=== PATIENT | female | born 1985 | race Caucasian/White ===

== ENCOUNTER 2017-07-07 09:34 | Observation (INO) | payer MEDICAID ==
[~2017-07-07] VITALS: Ht 154.9 cm; Wt 52.0 kg
[~2017-07-07 09:34] MED LIST: AMOX500C2 PO; DOCU100C37 PO; GABA-488 PO; IBUP-1773 PO; OXYC-471 PO; SULF1TAB35 PO; TRAM50TA2 PO
--- OUTSIDE RECORDS SUMMARY | 2017-07-07 09:39 | XMS REPORT ---
Author Author DEVAN SORENSEN Organization [facility] Address [address] [place] [address] Care Team Providers Care Solo Truck Driver Name Role Phone DEVAN SORENSEN Unavailable PROBLEMS Type Condition ICD9-CM Code [id number] Code Onset Dates Condition Status SNOMED Code Problem Seasonal allergic rhinitis, unspecified allergic rhinitis trigger J30.2 Active 550976593 Problem Nondependent tobacco use disorder 305.1 Active 303744839 Problem Cough 786.2 Active [id number] ALLERGIES Substance Reaction Event Type Date Status N.K.D.A. Unknown Non Drug Allergy Oct, Unknown SOCIAL HISTORY No smoking Hx information available PLAN OF CARE Activity Details Follow Up prn Reason: VITAL SIGNS Height 62 in 2016-11-06 Weight 119.4 lbs 2016-11-06 Temperature 97.6 degrees Fahrenheit 2016-11-06 Heart Rate 84 bpm 2016-11-06 Respiratory Rate 20 2016-11-06 BMI 21.84 kg/m2 2016-11-06 Blood pressure systolic 128 mmHg 2016-11-06 Blood pressure diastolic 76 mmHg 2016-11-06 MEDICATIONS Medication Instructions Dosage Frequency Start Date End Date Duration Status Ibuprofen 800 MG Orally Three times a day 1 tablet 8h Oct, Nov, 15 days Active RESULTS Name Result Date Reference Range Xray : Finger(s), Right 2 views (IN HOUSE) 2016-11-06 PROCEDURES Procedure Date Ordered Related Diagnosis Body Site X-RAY EXAM OF FINGER(S) Nov 06, 2016 Office Visit, Est Pt., Level 3 Nov 06, 2016 IMMUNIZATIONS No Known Immunizations
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
[2017-07-07] MEDS ORDERED: ONDA4TAB11 SL (10:07)
--- NOTE | 2017-07-07 10:29 | ED General ---
General Chief Complaint: General Problems/Pain Stated Complaint: BLOOD IN URINE/NAUSEA/STOMACH PAIN Nursing Triage Note: ARRIVED VIA AMB TO ROOM 06 WITH MULTIPLE COMPLAINTS. CURRENTLY DETOXING ON OWN OFF OF [employer] ET HAS AN APPT WITH ASHLIE TOMORROW. STATES SHE IS PEEING ORANGE, STOMACH HURTS, GENERAL CRAMPING IN ALL EXT, AND GENERALIZED EDEMA. Nursing Sepsis Screen: Possible Sepsis Risk Source of Information: Patient, Family Exam Limitations: No Limitations History of Present Illness Time Seen by Provider: 10:25 Initial Comments This 31-year-old white female presents with a history of recently discontinuing significant drinking what she has done for the past year. The patient has had subsequent general malaise with nausea and vomiting. The patient feels clinically dehydrated. Patient has no localized abdominal pain. She denies hematemesis or black or tarry stools. Patient has noted apparent hematuria although she has no associated dysuria or frequency. Allergies and Home Medications Allergies Coded Allergies: No Known Drug Allergies (Unverified , 11/06/14) Home Medications Ondansetron 4 Mg Tab.rapdis, (Reported) Constitutional: chills, No fever, malaise, weakness EENTM: No ear pain, No throat pain Respiratory: No cough Cardiovascular: No chest pain Gastrointestinal: No abdominal pain, No diarrhea, nausea, vomiting Genitourinary: No dysuria, No frequency, hematuria : No Musculoskeletal: No back pain Skin: No rash Psychiatric/Neurological: No Symptoms Reported Hematologic/Lymphatic: No Symptoms Reported Past Fvtlwqn-Scgbyg-Ihvwcb Hx Patient Social History Alcohol Use: Regular Use Alcohol Beverage of Choice: Whiskey Recreational Drug Use: Yes (POT) Smoking Status: Current Everyday Smoker Type Used: Cigarettes Recent Foreign Travel: No Contact w/Someone Who Travel: No Recent Infectious Disease Expo: No Recent Hopitalizations: No Immunizations Up To Date Tetanus Booster (TDap): Less than 5yrs Surgeries History of Surgeries: Yes (Rt.hand surgery) Surgeries: Section, Orthopedic Respiratory History of Respiratory Disorde: No Cardiovascular History of Cardiac Disorders: Yes Cardiac Disorders: Hypertension Neurological History of Neurological Disord: No Reproductive System Last Menstrual Period: Jun 23, 2017 Hx Reproductive Disorders: No Sexually Transmitted Disease: No HIV/AIDS: No Female Reproductive Disorders: Denies Genitourinary History of Genitourinary Disor: No Gastrointestinal History of Gastrointestinal Di: No Musculoskeletal History of Musculoskeletal Dis: Yes Musculoskeletal Disorders: Scoliosis Endocrine History of Endocrine Disorders: No Cancer History of Cancer: No Psychosocial History of Psychiatric Problem: No Integumentary History of Skin or Integumenta: No Blood Transfusions History of Blood Disorders: No Adverse Reaction to a Blood Tr: No Reviewed Nursing Assessment Reviewed/Agree w Nursing PMH: Yes Family Medical History Family Medial History: Diabetes mellitus (mother's side of family) FH: cancer (grandfather- heart CA) Physical Exam Vital Signs Vital Sign - Last 12Hours 07/07/17 09:50 Temp 96.3 Pulse 120 Resp 18 B/P (MAP) 130/97 Pulse Ox 97 O2 Delivery Room Air Capillary Refill : Less Than 3 Seconds General Appearance: Cachetic, Mild Distress Eyes: Bilateral Eye Scleral Icterus HEENT: Normal ENT Inspection Neck: Normal Inspection, Supple Respiratory: Lungs Clear Cardiovascular: Regular Rate, Rhythm Gastrointestinal: Normal Bowel Sounds, No Organomegaly, No Pulsatile Mass, Non Tender Back: Normal Inspection Extremity: Normal Inspection, Normal Range of Motion Neurologic/Psychiatric: Alert, Oriented x3, No Motor/Sensory Deficits Skin: Normal Color, Warm/Dry Progress/Results/Core Measures Results/Orders Lab Results Laboratory Tests Test 07/07/17 10:10 07/07/17 11:00 Range/Units White Blood Count 9.9 4.3-11.0 10^3/uL Red Blood Count 4.23 L 4.35-5.85 10^6/uL Hemoglobin 13.8 11.5-16.0 G/DL Hematocrit 39 35-52 % Mean Corpuscular Volume 93 80-99 FL Mean Corpuscular Hemoglobin 33 25-34 PG Mean Corpuscular Hemoglobin Concent 35 32-36 G/DL Red Cell Distribution Width 18.1 H 10.0-14.5 % Platelet Count 200 130-400 10^3/uL Mean Platelet Volume 10.7 H 7.4-10.4 FL Neutrophils (%) (Auto) 72 42-75 % Lymphocytes (%) (Auto) 17 12-44 % Monocytes (%) (Auto) 10 0-12 % Eosinophils (%) (Auto) 1 0-10 % Basophils (%) (Auto) 0 0-10 % Neutrophils # (Auto) 7.0 1.8-7.8 X 10^3 Lymphocytes # (Auto) 1.7 1.0-4.0 X 10^3 Monocytes # (Auto) 1.0 0.0-1.0 X 10^3 Eosinophils # (Auto) 0.1 0.0-0.3 10^3/uL Basophils # (Auto) 0.0 0.0-0.1 10^3/uL Sodium Level 136 137 135-145 MMOL/L Potassium Level 2.0 *L 2.1 *L 3.6-5.0 MMOL/L Chloride Level 91 L 96 L 98-107 MMOL/L Carbon Dioxide Level 29 28 21-32 MMOL/L Anion Gap 16 H 13 5-14 MMOL/L Blood Urea Nitrogen 8 8 7-18 MG/DL Creatinine 0.67 0.60 0.60-1.30 MG/DL Estimat Glomerular Filtration Rate > 60 > 60 BUN/Creatinine Ratio 12 13 Glucose Level 101 92 70-105 MG/DL Calcium Level 8.2 L 7.4 L 8.5-10.1 MG/DL Total Bilirubin 2.2 H 0.1-1.0 MG/DL Aspartate Amino Transf (AST/SGOT) 53 H 5-34 U/L Alanine Aminotransferase (ALT/SGPT) 24 0-55 U/L Alkaline Phosphatase 127 40-136 U/L Total Protein 6.1 L 6.4-8.2 GM/DL Albumin 3.1 L 3.2-4.5 GM/DL Lipase 5 L 8-78 U/L My Orders Orders - AMRIK GROVER MD Hepatitis Panel Acute (07/07/17 10:22) Cbc With Automated Diff (07/07/17 10:22) Comprehensive Metabolic Panel (07/07/17 10:22) Ua Culture If Indicated (07/07/17 10:22) Chest 1 View, Ap/Pa Only (07/07/17 10:22) Lipase (07/07/17 10:22) Ns Iv 1000 Ml (Sodium Chloride 0.9%) (07/07/17 10:30) Continuous Ekg Monitoring (07/07/17 10:56) Ekg Tracing (07/07/17 10:56) Basic Metabolic Panel (07/07/17 10:56) Potassium Cl 10meq/50ml Ivpb (Kcl 10 Meq (07/07/17 11:00) Potassium Chloride (Tablet) (K Dur Table (07/07/17 11:00) Medications Given in ED Current Medications Medications Dose Ordered Sig/Mariajose Route Start Time Stop Time Status Last Admin Dose Admin Potassium Chloride 20 meq ONCE ONCE PO 07/07/17 11:00 07/07/17 11:01 DC 07/07/17 11:11 20 MEQ Vital Signs/I&O Vital Sign - Last 12Hours 07/07/17 09:50 Temp 96.3 Pulse 120 Resp 18 B/P (MAP) 130/97 Pulse Ox 97 O2 Delivery Room Air Blood Pressure Mean: 108 Progress Note : Time: 12:12 Progress Note Patient laboratory evaluation that was triggered a potassium of 2.0. The lab was repeated and the potassium was 2.1. Patient started on potassium replacement. Patient was feeling better with IV fluids. Dr. Wolff was kind enough to admit the patient to an observation bed. Departure Communication (Admissions) Time/Spoke to Admitting Phy: 12:[address] Chauncey Wolff. Impression Impression: Primary Impression: Acute hypokalemia Disposition: ADMITTED INPATIENT Condition: Improved Admissions Decision to Admit Reason: Admit from ER (General) Decision to Admit/Date: Jul 07, 2017 Time/Decision to Admit Time: 12:14 Departure-Patient Inst. Referrals: [facility] (PCP) Primary Care Physician CHAUNCEY WOLFF MD (Family) Primary Care Physician AMRIK GROVER MD Jul 07, 2017 10:29
[2017-07-07 10:30] LABS: BASOPHILS % (AUTO) 0 % (0-10); EOSINOPHILS # (AUTO) 0.1 10^3/uL (0.0-0.3); EOSINOPHILS % (AUTO) 1 % (0-10); LYMPHOCYTES # (AUTO) 1.7 X 10^3 (1.0-4.0); LYMPHOCYTES % (AUTO) 17 % (12-44); MEAN CORPUSCULAR HEMOGLOBIN 33 PG (25-34); MEAN CORPUSCULAR HGB CONC 35 G/DL (32-36); MEAN CORPUSCULAR VOLUME 93 FL (80-99); MEAN PLATELET VOLUME 10.7 FL (7.4-10.4); MONOCYTES % (AUTO) 10 % (0-12); NEUTROPHILS % (AUTO) 72 % (42-75); PLATELET COUNT 200 10^3/uL (130-400); RED BLOOD COUNT 4.23 10^6/uL (4.35-5.85); RED CELL DISTRIBUTION WIDTH 18.1 % (10.0-14.5); WHITE BLOOD COUNT 9.9 10^3/uL (4.3-11.0)
[2017-07-07] MEDS ORDERED: NS IV 1000 ML 1,000 ML IV SCH (10:30)
[2017-07-07 10:44] LABS: ALANINE AMINOTRANSFERASE 24 U/L (0-55); ALBUMIN 3.1 GM/DL (3.2-4.5); ANION GAP 16 MMOL/L (5-14); ASPARTATE AMINO TRANSFERASE 53 U/L (5-34); BILIRUBIN,TOTAL 2.2 MG/DL (0.1-1.0); BLOOD UREA NITROGEN 8 MG/DL (7-18); BUN/CREATININE RATIO 12; CALCIUM 8.2 MG/DL (8.5-10.1); CARBON DIOXIDE 29 MMOL/L (21-32); CHLORIDE 91 MMOL/L (98-107); CREATININE SERUM 0.67 MG/DL (0.60-1.30); GFR ESTIMATED > 60; GLUCOSE 101 MG/DL (70-105); LIPASE 5 U/L (8-78); SODIUM 136 MMOL/L (135-145); TOTAL PROTEIN 6.1 GM/DL (6.4-8.2)
[2017-07-07] MEDS ORDERED: KCL 20 MEQ TAB (K-DUR) PO ONE (11:00)
[2017-07-07] MEDS: POTASSIUM CL 10MEQ/50ML IVPB 50 ML IV SCH ×3 (11:11→14:27)
[2017-07-07 11:26] LABS: ANION GAP 13 MMOL/L (5-14); BLOOD UREA NITROGEN 8 MG/DL (7-18); BUN/CREATININE RATIO 13; CALCIUM 7.4 MG/DL (8.5-10.1); CARBON DIOXIDE 28 MMOL/L (21-32); CHLORIDE 96 MMOL/L (98-107); GFR ESTIMATED > 60; GLUCOSE 92 MG/DL (70-105); SODIUM 137 MMOL/L (135-145)
[2017-07-07 11:27] LABS: POTASSIUM 2.1 MMOL/L (3.6-5.0)
--- NOTE | 2017-07-07 11:33 | Diagnostic Imaging Report ---
INDICATION: Hypokalemia, generalized edema. TECHNIQUE: Single view chest 10:55 AM. CORRELATION STUDY: None FINDINGS: The heart size, mediastinal configuration and pulmonary vascularity are within normal limits. The lungs are clear with no consolidating infiltrate. There is no significant effusion or pneumothorax. IMPRESSION: 1. Negative portable chest. Dictated by: Dictated on workstation # [id number]
--- OUTSIDE RECORDS SUMMARY | 2017-07-07 12:03 | XMS REPORT | Continuity of Care Document ---
Author Author [facility] of [facility] C[facility] Address Unknown Phone Unavailable Allergies Active Description Code Type Severity Reaction Onset Reported/Identified Relationship to Patient Clinical Status Yes No Known Drug Allergies [id number] Drug Allergy Unknown N/ A 11/06/2014 Medications Problems Date Dx Coded Attending Type Code Diagnosis Diagnosed By 08/02/2014 LAURA SANCHEZ APRN 305.1 TOBACCO ABUSE 08/02/2014 LAURA SANCHEZ APRN 786.2 COUGH 11/06/2014 LEONARDO SONI Ot 521.00 UNSPEC DENTAL CARIES 11/06/2014 LEONARDO SONI Ot 522.5 PERIAPICAL ABSCESS 11/06/2014 LEONARDO SONI Ot 525.9 DENTAL DISORDER NOS 11/24/2014 KARLOS MAY EVP OPERATIONS Ot 727.00 12/23/2014 Ot 873.0 OPEN WOUND OF SCALP 12/23/2014 Ot 959.01 HEAD INJURY, NOS 12/23/2014 Ot E000.8 OTHER EXTERNAL CAUSE STATUS 12/23/2014 Ot E849.[address] NEC 12/23/2014 Ot E917.4 STAT OB W/O SUB FALL NEC 12/23/2014 Ot V06.1 [id number], COMBINED [ 12/24/2014 Ot 873.1 OPEN WOUND SCALP-COMPL 12/24/2014 Ot 873.8 OPEN WOUND OF HEAD NEC 12/24/2014 Ot E000.8 OTHER EXTERNAL CAUSE STATUS 12/24/2014 Ot E958.8 SUICIDE/SELF-INJURY NEC 03/09/2015 KARLOS MAY EVP OPERATIONS Ot 727.00 03/09/2015 KARLOS MAY EVP OPERATIONS Ot 727.00 04/22/2015 KARLOS MAY EVP OPERATIONS Ot 727.00 03/07/2016 KARLOS MAY EVP OPERATIONS Ot 727.00 SYNOVITIS NOS 03/09/2016 ELIZABETH SINCLAIR, [...] Procedures Code [place] [address] OXIMETRY 2013 [id number] EXTRACTION OF POC, LOW CERVICAL, OPEN AP 03/07/2016 Results Encounters ACCT No. Visit Date/Time Discharge Status Pt. Type Provider Facility Loc./Unit Complaint [id number] 08/02/2014 13:44:00 08/02/2014 23: 59:59 CLS Outpatient LAURA SANCHEZ APRN [id number] 06/03/2016 17:15:00 2015 17:30:00 DIS Emergency BRUCE HANNON MD Via [facility] ER STAPLE REMOVAL [id number] 05/24/2016 03:20:00 2015 03:57:00 DIS Emergency CHARLY ASTUDILLO DO Via [facility] ER HEAD LAC-ASSAULT [id number] 03/29/2016 09:38:00 2015 23:59:59 CLS Outpatient POLO JOHNSON MD Via [facility] RAD POSTOPERATIVE ABDOMINAL PAIN [id number] 03/07/2016 10:55:00 2015 12:45:00 DIS Inpatient POLO JOHNSON MD Via [facility] WS C SECTION [id number] 11/11/2014 12:52:00 2014 23:59:59 CLS Outpatient KARLOS MAY APRN Via [facility] RAD PAIN BILAT WRIST/HAND [id number] 11/06/2014 21:07:00 2014 22:30:00 DIS Emergency LEONARDO SONI Via [facility] ER DENTAL PAIN [id number] 03/09/2015 07:18:00 Document Registration [id number] 03/09/2015 07:18:00 Document Registration
[2017-07-07 12:34] LABS: KETONES,URINE 1+ (NEGATIVE); LEUKOCYTE ESTERASE ,URINE 2+ (NEGATIVE); NITRITE,URINE POSITIVE (NEGATIVE); PH,URINE 7 (5-9); PROTEIN,URINE 2+ (NEGATIVE); UROBILINOGEN,URINE 12 MG/DL (NORMAL)
[2017-07-07 12:40] VITALS: BP 122/72
[2017-07-07 12:42] LABS: BILIRUBIN,URINE 2+ (NEGATIVE)
[2017-07-07] MEDS: NS W/KCL 40 MEQ/L 1,000 ML IV SCH ×2 (13:00→22:33)
[2017-07-07 13:40] VITALS: BP 122/72
[2017-07-07] MEDS ORDERED: ONDANSETRON 4 MG/2 ML (SDV) Z0FRAN IV PRN (13:45)
[2017-07-07] MEDS ORDERED: LORazepam INJ 2 MG/ML (ATIVAN) VIAL IV PRN (13:45)
[2017-07-07] MEDS ORDERED: LORazepam 1 MG (ATIVAN) TAB PO PRN (13:45)
[2017-07-07] MEDS ORDERED: CATHETER FLUSH 10 ML SYR IV PRN (13:45)
[2017-07-07] MEDS: KCL 10 MEQ TAB (MICRO K) PO SCH ×2 (13:54→16:13)
[2017-07-07] MEDS: NICOTINE 21 MG (NICODERM) PATCH TD SCH (13:54)
[2017-07-07 15:15] VITALS: BP 122/72
[2017-07-07 15:59] VITALS: BP 120/75
[2017-07-07 18:19] LABS: ANION GAP 15 MMOL/L (5-14); BLOOD UREA NITROGEN 8 MG/DL (7-18); BUN/CREATININE RATIO 14; CALCIUM 7.6 MG/DL (8.5-10.1); CARBON DIOXIDE 25 MMOL/L (21-32); CHLORIDE 96 MMOL/L (98-107); CREATININE SERUM 0.57 MG/DL (0.60-1.30); GFR ESTIMATED > 60; GLUCOSE 96 MG/DL (70-105); SODIUM 136 MMOL/L (135-145)
[2017-07-07 18:26] LABS: POTASSIUM 2.4 MMOL/L (3.6-5.0)
[2017-07-07] MEDS ORDERED: RT-ALBUTEROL/IPRATROPIUM 3 ML (DUONEB) VIAL ONE (19:17)
[2017-07-07] MEDS: KCL 20 MEQ TAB (K-DUR) PO SCH (19:48)
[2017-07-07 19:50] VITALS: BP 124/73
[2017-07-08] VITALS: BP 118/83
[2017-07-08] MEDS: KCL 20 MEQ TAB (K-DUR) PO SCH ×3 (00:09→08:36)
[2017-07-08 04:00] VITALS: BP 115/65
[2017-07-08 05:52] LABS: BASOPHILS % (AUTO) 1 % (0-10); EOSINOPHILS # (AUTO) 0.1 10^3/uL (0.0-0.3); EOSINOPHILS % (AUTO) 1 % (0-10); LYMPHOCYTES # (AUTO) 2.1 X 10^3 (1.0-4.0); LYMPHOCYTES % (AUTO) 34 % (12-44); MEAN CORPUSCULAR HEMOGLOBIN 33 PG (25-34); MEAN CORPUSCULAR HGB CONC 34 G/DL (32-36); MEAN CORPUSCULAR VOLUME 96 FL (80-99); MEAN PLATELET VOLUME 10.8 FL (7.4-10.4); MONOCYTES # (AUTO) 0.6 X 10^3 (0.0-1.0); MONOCYTES % (AUTO) 10 % (0-12); NEUTROPHILS # (AUTO) 3.4 X 10^3 (1.8-7.8); NEUTROPHILS % (AUTO) 54 % (42-75); PLATELET COUNT 188 10^3/uL (130-400); RED BLOOD COUNT 3.51 10^6/uL (4.35-5.85); RED CELL DISTRIBUTION WIDTH 18.7 % (10.0-14.5); WHITE BLOOD COUNT 6.3 10^3/uL (4.3-11.0)
[2017-07-08 06:14] LABS: ALANINE AMINOTRANSFERASE 21 U/L (0-55); ALBUMIN 2.6 GM/DL (3.2-4.5); ANION GAP 9 MMOL/L (5-14); ASPARTATE AMINO TRANSFERASE 50 U/L (5-34); BILIRUBIN,TOTAL 1.4 MG/DL (0.1-1.0); BLOOD UREA NITROGEN 7 MG/DL (7-18); BUN/CREATININE RATIO 13; CALCIUM 7.3 MG/DL (8.5-10.1); CARBON DIOXIDE 25 MMOL/L (21-32); CHLORIDE 103 MMOL/L (98-107); CREATININE SERUM 0.54 MG/DL (0.60-1.30); GFR ESTIMATED > 60; GLUCOSE 112 MG/DL (70-105); POTASSIUM 2.9 MMOL/L (3.6-5.0); SODIUM 137 MMOL/L (135-145); TOTAL PROTEIN 4.9 GM/DL (6.4-8.2)
[2017-07-08] MEDS: RT-ALBUTEROL/IPRATROPIUM 3 ML (DUONEB) VIAL INH SCH ×3 (08:02→14:37)
[2017-07-08 08:32] VITALS: BP 110/73
[2017-07-08] MEDS: NICOTINE 21 MG (NICODERM) PATCH TD SCH (08:36)
[2017-07-08] MEDS ORDERED: NICOTINE PATCH REMOVAL TP SCH (08:59)
[2017-07-08] MEDS: NS W/KCL 40 MEQ/L 1,000 ML IV SCH (09:02)
[2017-07-08 12:00] VITALS: BP 124/79
[2017-07-08 13:16] LABS: KETONES,URINE NEGATIVE (NEGATIVE); LEUKOCYTE ESTERASE ,URINE 2+ (NEGATIVE); NITRITE,URINE POSITIVE (NEGATIVE); PH,URINE 6 (5-9); PROTEIN,URINE 1+ (NEGATIVE); UROBILINOGEN,URINE 8 MG/DL (NORMAL)
[2017-07-08 13:43] LABS: BILIRUBIN,URINE 2+ (NEGATIVE); SQUAMOUS EPITHELIAL CELL,UR 25-50 /HPF
[2017-07-08 13:44] LABS: HYALINE CASTS, URINE 0-2 /LPF
[2017-07-08 15:20] VITALS: BP 137/93
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
[2017-07-08] MEDS ORDERED: CIPR500T4 PO (16:05)
--- NOTE | 2017-07-08 16:06 | Discharge Instructions ---
Discharge Inst-[facility] Discharge Medications New, Converted or Re-Newed RX: Other New Medications: Ciprofloxacin HCl (Ciprofloxacin HCl) 500 Mg Tablet 500 MG PO BID, #14 TAB 0 Refills Continued Medications: Ondansetron (Ondansetron Odt) 4 Mg Tab.rapdis 4 MG SL Q8H PRN for NAUSEA/VOMITING-1ST LINE Patient Instructions Goal/Follow Up Appt: -[facility] WILL CALL YOU TOMORROW TO SCHEDULE A FOLLOW UP APPOINTMENT Patient Instructions: -PLEASE FOLLOW UP WITH YOUR PLANS DISCUSSED WHILE IN HOSPITAL -PLEASE SEE DR DAILEY AND THE ATS TEAM LATER THIS WEEK; BILL WILL CALL TO SCHEDULE -REFRAIN FROM DRINKING ALCOHOL OR TAKING OTHER SUBSTANCES -TAKE THE ANTIBIOTIC FOR YOUR URINARY TRACT INFECTION Return to The Hospital For: THOUGHTS OF WANTING TO HARM YOURSELF; IF YOU DO NOT FEEL SAFE AT HOME Activity & Diet Discharge Diet: No Restrictions Activity as Tolerated: Yes Copy Copies To 1: CHAUNCEY DAILEY MD, JULIE A MD Jul 08, 2017 4:01 pm
== END 2017-07-08 15:59 | disposition home or self-care (01) ==
LOC: EDUNIT# 09:34 → ER 09:36 → 4TH 11:58 → EEVIPCON 11:58 → UNDOADMOB 11:58 → 4TH 11:59
PROVIDERS: ADMIT Pediatrics; ATTEND Pediatrics
DX: E87.6 Hypokalemia (principal); F10.21 Alcohol dependence, in remission; F32.9 Major depressive disorder, single episode, unspecified; I10 Essential (primary) hypertension; F17.210 Nicotine dependence, cigarettes, uncomplicated
CPT/HCPCS: 36415; 71010; 80048; 80053; 80074; 81000; 83690; 84132; 85025; 87088; 93005; 94640; 94664; 94760; G0378

== ENCOUNTER 2018-04-12 13:08 | Emergency (ER) | payer MEDICAID ==
[~2018-04-12] VITALS: Ht 157.5 cm; Wt 51.3 kg
[~2018-04-12 13:08] MED LIST changes: +CIPR500T4 PO; +ONDA4TAB11 SL
--- NOTE | 2018-04-12 13:26 | ED General ---
General Stated Complaint: BLOODY STOOLS FOR A WEEK Source of Information: Patient Exam Limitations: No Limitations History of Present Illness Date Seen by Provider: Apr 12, 2018 Time Seen by Provider: 13:24 Initial Comments to ER with reports of bright red blood streaked stools and abdominal cramping for one week.She denies fevers chills or weight loss. No history of this. No rectal pain. No vomiting or hematemesis. She was a former alcoholic and has been sober for 9 months. Severity: Moderate Associated Systoms: No Loss of Appetite, No Malaise, No Nausea/Vomiting Allergies and Home Medications Allergies Coded Allergies: No Known Drug Allergies (Unverified , 11/06/14) Home Medications Ondansetron 4 Mg Tab.rapdis, 4 MG SL Q8H PRN for NAUSEA/VOMITING-1ST LINE, ( Reported) Patient Home Medication List Home Medication List Reviewed: Yes Review of Systems Constitutional: see HPI EENTM: see HPI Respiratory: no symptoms reported Cardiovascular: no symptoms reported Genitourinary: no symptoms reported Musculoskeletal: no symptoms reported Skin: no symptoms reported Psychiatric/Neurological: No Symptoms Reported Past Qmfpbfd-Zaujbf-Mifjvo Hx Patient Social History Alcohol Beverage of Choice: Whiskey Type Used: Cigarettes Recent Foreign Travel: No Contact w/Someone Who Travel: No Recent Hopitalizations: No Immunizations Up To Date Tetanus Booster (TDap): Less than 5yrs PED Vaccines UTD: Yes Seasonal Allergies Seasonal Allergies: No Past Medical History Surgeries: Yes (Rt.hand surgery) Section, Orthopedic Respiratory: No Cardiac: Yes Hypertension Neurological: No Reproductive Disorders: No Female Reproductive Disorders: Denies Sexually Transmitted Disease: No HIV/AIDS: No Genitourinary: No Gastrointestinal: No Musculoskeletal: Yes Scoliosis Endocrine: No HEENT: No Cancer: No Psychosocial: No Integumentary: No Blood Disorders: No Adverse Reaction/Blood Tranf: No Family Medical History Diabetes mellitus (mother's side of family) FH: cancer (grandfather- heart CA) Physical Exam Vital Signs Vital Signs - First Documented 04/12/18 13:13 Pulse 69 Resp 18 B/P (MAP) 110/60 (77) Pulse Ox 96 O2 Delivery Room Air Capillary Refill : General Appearance: No Apparent Distress, WD/WN Eyes: Bilateral Eye Normal Inspection, Bilateral Eye PERRL, Bilateral Eye EOMI HEENT: PERRL/EOMI, TMs Normal Neck: Full Range of Motion, Normal Inspection Respiratory: Normal Breath Sounds, No Accessory Muscle Use, No Respiratory Distress Gastrointestinal: Normal Bowel Sounds, Soft, Tenderness (minimal epigastric tenderness) Rectal: Other (rectal exam done with Karlene RN at the bedside. There is no visualized anal fissure, piles or hemorrhoids visualized.) Extremity: Normal Capillary Refill, Normal Inspection Neurologic/Psychiatric: Alert, Oriented x3 Skin: Normal Color, Warm/Dry Progress/Results/Core Measures Suspected Sepsis SIRS Temperature: Pulse: Respiratory Rate: Laboratory Tests 04/12/18 13:20: White Blood Count 5.6 Blood Pressure / Mean: Laboratory Tests 04/12/18 13:20: Creatinine 0.71, Platelet Count 280, Total Bilirubin 0.6 Results/Orders Lab Results Laboratory Tests Test 04/12/18 13:20 Range/Units White Blood Count 5.6 4.3-11.0 10^3/uL Red Blood Count 4.12 L 4.35-5.85 10^6/uL Hemoglobin 11.1 L 11.5-16.0 G/DL Hematocrit 34 L 35-52 % Mean Corpuscular Volume 83 80-99 FL Mean Corpuscular Hemoglobin 27 25-34 PG Mean Corpuscular Hemoglobin Concent 33 32-36 G/DL Red Cell Distribution Width 15.9 H 10.0-14.5 % Platelet Count 280 130-400 10^3/uL Mean Platelet Volume 10.4 7.4-10.4 FL Neutrophils (%) (Auto) 53 42-75 % Lymphocytes (%) (Auto) 32 12-44 % Monocytes (%) (Auto) 13 H 0-12 % Eosinophils (%) (Auto) 2 0-10 % Basophils (%) (Auto) 0 0-10 % Neutrophils # (Auto) 3.0 1.8-7.8 X 10^3 Lymphocytes # (Auto) 1.8 1.0-4.0 X 10^3 Monocytes # (Auto) 0.7 0.0-1.0 X 10^3 Eosinophils # (Auto) 0.1 0.0-0.3 10^3/uL Basophils # (Auto) 0.0 0.0-0.1 10^3/uL Sodium Level 139 135-145 MMOL/L Potassium Level 3.5 L 3.6-5.0 MMOL/L Chloride Level 106 98-107 MMOL/L Carbon Dioxide Level 23 21-32 MMOL/L Anion Gap 10 5-14 MMOL/L Blood Urea Nitrogen 10 7-18 MG/DL Creatinine 0.71 0.60-1.30 MG/DL Estimat Glomerular Filtration Rate > 60 BUN/Creatinine Ratio 14 Glucose Level 103 70-105 MG/DL Calcium Level 9.4 8.5-10.1 MG/DL Total Bilirubin 0.6 0.1-1.0 MG/DL Aspartate Amino Transf (AST/SGOT) 13 5-34 U/L Alanine Aminotransferase (ALT/SGPT) 13 0-55 U/L Alkaline Phosphatase 53 40-136 U/L Total Protein 7.0 6.4-8.2 GM/DL Albumin 4.1 3.2-4.5 GM/DL Lipase 12 8-78 U/L Serum Test, Qualitative NEGATIVE NEGATIVE My Orders Orders - JARON AGUIRRE APRN Cbc With Automated Diff (04/12/18 13:22) Comprehensive Metabolic Panel (04/12/18 13:22) Lipase (04/12/18 13:22) Hcg,Qualitative Serum (04/12/18 13:22) Ua Culture If Indicated (04/12/18 13:22) Iv Heplock-Insert (Order) (04/12/18 13:22) Vital Signs/I&O 04/12/18 13:13 Pulse 69 Resp 18 B/P (MAP) 110/60 (77) Pulse Ox 96 O2 Delivery Room Air Capillary Refill : Departure Impression Primary Impression: Bloody stools Disposition: HOME, SELF-CARE Condition: Stable Departure-Patient Inst. Decision time for Depature: 14:06 Referrals: [facility]/ (PCP) Primary Care Physician CHAUNCEY DAILEY MD (Family) Primary Care Physician ABAD MORA BRETT D DO JENKINS, XAVIER M MD KIDO, TAKAAKI MD Patient Instructions: Hemorrhoids (DC) Add. Discharge Instructions: 1. Call a surgeon of your choosing on Saturday to make an appointment to be seen. The next step will likely include a colonoscopy to look for a source of bleeding.return to ER for any abdominal pains, fevers, lightheadedness or other concerns. JARON AGUIRRE APRN Apr 12, 2018 13:26
[2018-04-12 13:41] LABS: BASOPHILS % (AUTO) 0 % (0-10); EOSINOPHILS # (AUTO) 0.1 10^3/uL (0.0-0.3); EOSINOPHILS % (AUTO) 2 % (0-10); HEMATOCRIT 34 % (35-52); HEMOGLOBIN 11.1 G/DL (11.5-16.0); LYMPHOCYTES # (AUTO) 1.8 X 10^3 (1.0-4.0); LYMPHOCYTES % (AUTO) 32 % (12-44); MEAN CORPUSCULAR HEMOGLOBIN 27 PG (25-34); MEAN CORPUSCULAR HGB CONC 33 G/DL (32-36); MEAN CORPUSCULAR VOLUME 83 FL (80-99); MEAN PLATELET VOLUME 10.4 FL (7.4-10.4); MONOCYTES # (AUTO) 0.7 X 10^3 (0.0-1.0); MONOCYTES % (AUTO) 13 % (0-12); NEUTROPHILS % (AUTO) 53 % (42-75); PLATELET COUNT 280 10^3/uL (130-400); RED BLOOD COUNT 4.12 10^6/uL (4.35-5.85); RED CELL DISTRIBUTION WIDTH 15.9 % (10.0-14.5); WHITE BLOOD COUNT 5.6 10^3/uL (4.3-11.0)
[2018-04-12] MEDS ORDERED: ESCI10TA55 (13:44)
[2018-04-12] MEDS ORDERED: PROP40TA5 (13:44)
[2018-04-12 14:01] LABS: ALANINE AMINOTRANSFERASE 13 U/L (0-55); ALBUMIN 4.1 GM/DL (3.2-4.5); ALKALINE PHOSPHATASE 53 U/L (40-136); BILIRUBIN,TOTAL 0.6 MG/DL (0.1-1.0); BUN/CREATININE RATIO 14; CALCIUM 9.4 MG/DL (8.5-10.1); CARBON DIOXIDE 23 MMOL/L (21-32); CHLORIDE 106 MMOL/L (98-107); CREATININE SERUM 0.71 MG/DL (0.60-1.30); GFR ESTIMATED > 60; GLUCOSE 103 MG/DL (70-105); LIPASE 12 U/L (8-78); POTASSIUM 3.5 MMOL/L (3.6-5.0); SODIUM 139 MMOL/L (135-145)
[2018-04-12 14:17] VITALS: BP 109/71
[2018-04-12 14:17] LABS: BILIRUBIN,URINE 2+ (NEGATIVE); CLARITY,URINE VERY CLOUDY; COLOR,URINE YELLOW; GLUCOSE, URINE (UA) NEGATIVE (NEGATIVE); KETONES,URINE 1+ (NEGATIVE); LEUKOCYTE ESTERASE ,URINE 1+ (NEGATIVE); NITRITE,URINE NEGATIVE (NEGATIVE); PH,URINE 5 (5-9); PROTEIN,URINE 2+ (NEGATIVE); UROBILINOGEN,URINE 4 MG/DL (NORMAL)
[2018-04-12 14:27] LABS: BACTERIA,URINE MODERATE /HPF; WBC,URINE RARE /HPF
[2018-04-12 14:29] LABS: CALCIUM OXALATE CRYSTALS,UR RARE /LPF
== END 2018-04-12 14:20 | disposition home or self-care (01) ==
LOC: EDUNIT# 13:08 → ER 13:13
DX: K92.1 Melena (principal); I10 Essential (primary) hypertension; Z87.2 Personal history of diseases of the skin and subcutaneous tissue; Z87.59 Personal history of other complications of pregnancy, childbirth and the puerperium
CPT/HCPCS: 36415; 80053; 81000; 83690; 84703; 85025; 85652; 86141

== ENCOUNTER 2018-04-21 05:37 | Outpatient (CLI) | payer MEDICAID ==
[~2018-04-21] VITALS: Ht 157.5 cm; Wt 51.5 kg
[~2018-04-21 05:37] MED LIST changes: +ESCI10TA55; +PROP40TA5
[2018-04-21] MEDS ORDERED: PROP40TA5 PO (13:31)
[2018-04-21] MEDS ORDERED: ESCI20TA PO (13:31)
== END 2018-04-21 13:36 ==
LOC: PREOP 05:37
PROVIDERS: ATTEND Surgery
DX: Z01.818 Encounter for other preprocedural examination (principal); K62.5 Hemorrhage of anus and rectum

== ENCOUNTER 2018-04-24 09:28 | Day surgery (SDC) | payer MEDICAID ==
[~2018-04-24] VITALS: Ht 157.5 cm; Wt 51.5 kg
[~2018-04-24 09:28] MED LIST changes: +ESCI20TA PO; +PROP40TA5 PO
[2018-04-24] MEDS ORDERED: LACTATED RINGERS 1,000 ML IV STA (09:44)
[2018-04-24] MEDS ORDERED: LACTATED RINGERS 1,000 ML IV ONE (09:46)
[2018-04-24 09:58] VITALS: BP 98/58
--- NOTE | 2018-04-24 10:22 | Progress Note-Pre Operative ---
Pre-Operative Progress Note H&P Reviewed The H&P was reviewed, patient examined and no changes noted. Time Seen by Provider: 10:18 Date H&P Reviewed: Apr 24, 2018 Time H&P Reviewed: 10:20 Pre-Operative Diagnosis: Rectal bleed ABAD MORA DO Apr 24, 2018 10:22
[2018-04-24] MEDS ORDERED: PROPOFOL INJECTION 50 ML IV ONE (10:54)
[2018-04-24] MEDS ORDERED: MIDAZOLAM 2 MG/2 ML (VERSED) VIAL ONE (10:55)
[2018-04-24] MEDS ORDERED: proPOfol 200 MG/20 ML (DIPRIVAN) VIAL IV ONE (11:20)
--- NOTE | 2018-04-24 11:32 | Progress Note-Post Operative ---
Post-Operative Progess Note Surgeon (s)/Sports Specialist (s) Surgeon ABAD MORA DO Sports Specialist: none Pre-Operative Diagnosis Rectal bleed Post-Operative Diagnosis Rectal bleed Colitis Internal Hemorrhoids Procedure & Operative Findings Date of Procedure 04/24/18 Procedure Performed/Findings Colonoscopy with random hot bx Anesthesia Type IV sedation by ENTRY LEVEL DRAFTER Estimated Blood Loss Estimated blood loss (mL): scant Specimens/Packing Specimens Removed random bx, 2 each Cecum, transvers, descending and sigmoid ABAD MORA DO Apr 24, 2018 11:31
--- NOTE | 2018-04-24 11:33 | Endoscopy Discharge Instruct ---
Endo Procedure/Findings Findings 1.: Colitis 2.: Internal Hemorrhoids Discharge Instructions - Activity: You might feel a little sleepy until tomorrow. This is due to the medicine you received to relax you. Until tomorrow, you should: NOT drive a car, operate machinery or power tools. NOT drink any alcoholic beverages. NOT make any important decisions or sign importortant papers. Do not return to work until tomorrow, unless otherwise instructed. Resume previous activities tomorrow. Diet: Start by taking liquids. If you tolerate liquids, advance to solid food. Make an appointment for one week, Notify Physician - If you experience excessive bleeding, unusual abdominal pain, fever, or chest pain, contact your doctor immediately. Follow-Up: - I have received and understand the above instructions and will call my doctor if I have any further questions. Patient Signature Date Nurse Signature Other (Relationship) ABAD MORA DO Apr 24, 2018 11:33
[2018-04-24 11:40] VITALS: BP 94/53
[2018-04-24 12:00] VITALS: BP 103/68
[2018-04-24 12:27] VITALS: BP 103/68
--- NOTE | 2018-04-24 16:16 | OPERATIVE REPORT ---
DATE OF SERVICE: PREOPERATIVE DIAGNOSIS: Rectal bleed. POSTOPERATIVE DIAGNOSES: 1. Rectal bleed. 2. Colitis. 3. Internal hemorrhoids. PROCEDURE: Colonoscopy with hot biopsy. SURGEON: Shyam Jack DO. AUTOMOTIVE LEASING SALES REPRESENTATIVE: None. ANESTHESIA: IV sedation by the REFRIGERATION ENGINEERING TEACHER. SPECIMEN: Two biopsies from the cecum, 2 biopsies from the transverse colon, 2 biopsies from the descending colon and 2 biopsies from the sigmoid colon. BLOOD LOSS: Scant. FLUIDS: Per anesthesia. POSTOPERATIVE CONDITION: Stable. INDICATION FOR PROCEDURE: The patient is a 32-year-old female who has been having some rectal bleeding and needs a workup. FINDINGS: The patient had some mild inflammation throughout the colon. Diagnosis is colitis. Like to do random biopsies. She also had some grade II internal hemorrhoids. No other obvious pathology seen. PROCEDURE NOTE: After informed consent was obtained, the patient was brought to the endoscopy suite and placed in bed in the left lateral decubitus position. She is administered IV sedation by the REFRIGERATION ENGINEERING TEACHER who then monitored her vitals the entire time, heart rate, blood pressure and pulse ox and the scope was inserted. On the way in, noted some inflammation in certain spots, unsure whether this was a real colitis or just due to some bowel prep artifact. Pushed all the way to the cecum, took a picture of the appendiceal orifice and then able to get into the terminal ileum, took a picture of the terminal ileum, looked fine, no ulcerations, villi did look flat, but otherwise looked okay and then slowly withdrew the scope, doing random hot biopsies, insufflating to look circumferentially at the saez, looking at the cecum, took 2 biopsies here up to the hepatic flexure, then down the transverse colon, did 2 biopsies here, then down to the splenic flexure into the descending colon, took 2 more biopsies and then continued down the descending colon into the sigmoid where I did 2 more random biopsies and then down into the rectum, retroflexed in the rectal vault, saw some grade II internal hemorrhoids, took a picture of this and then removed the scope, looked to try and invert the anus, did not really see an anal fissure. The patient tolerated the procedure well and she was recovered in the endoscopy suite. Job ID: [id number] DocumentID: [id number] Dictated Date: 04/24/2018 11:30:10 Anesthesia Attending Date: 04/24/2018 16:15:48 Dictated By: SHYAM JACK DO MTDD
== END 2018-04-24 12:15 | disposition home or self-care (01) ==
LOC: ENDO 09:28
PROVIDERS: ATTEND Surgery
DX: K62.5 Hemorrhage of anus and rectum (principal); K52.9 Noninfective gastroenteritis and colitis, unspecified; K64.8 Other hemorrhoids; K63.89 Other specified diseases of intestine; F17.210 Nicotine dependence, cigarettes, uncomplicated
CPT/HCPCS: 84703

== ENCOUNTER 2018-07-25 18:45 | Emergency (ER) | payer MEDICAID ==
[~2018-07-25] VITALS: Ht 157.5 cm; Wt 54.4 kg
--- NOTE | 2018-07-25 19:25 | ED Chest Pain ---
General Chief Complaint: Chest Wall/Rib Pain Stated Complaint: R SIDE RIB PAIN Source: patient Exam Limitations: no limitations History of Present Illness Date Seen by Provider: Jul 25, 2018 Time Seen by Provider: 19:21 Initial Comments To ER with right-sided lower chest pain worse with exhalation since about 11 AM this morning. She had an episode of near syncope last night without loss of consciousness or fall or injury. She's felt fine in that regard today with no recurrent syncope or near syncope. However, she does have this pain. No nausea no vomiting, no cough no shortness of breath. She describes the pain as sharp and burning. She was able to eat earlier today without any change in pain. The only thing that improves this pain is by pressing on it Timing/Duration: 4-6 hours Severity/Quality: moderate ASA po BALLING HEAD TENDER: No NTG SL BALLING HEAD TENDER: No Associated Symptoms: nausea/vomiting Allergies and Home Medications Allergies Coded Allergies: No Known Drug Allergies (Unverified , 04/21/18) Home Medications Escitalopram Oxalate 20 Mg Tablet, 20 MG PO DAILY, (Reported) Propranolol HCl 40 Mg Tablet, 20 MG PO BID, (Reported) Patient Home Medication List Home Medication List Reviewed: Yes Review of Systems Review of Systems Constitutional: see HPI EENTM: No Symptoms Reported Respiratory: No Symptoms Reported Cardiovascular: See HPI, Chest Pain Gastrointestinal: Denies Abdominal Pain, Denies Diarrhea, Denies Nausea Genitourinary: No Symptoms Reported Musculoskeletal: no symptoms reported Skin: no symptoms reported Psychiatric/Neurological: No Symptoms Reported Past Egfnjoz-Btlffi-Tqpzot Hx Patient Social History Alcohol Beverage of Choice: Whiskey Type Used: Cigarettes Recent Foreign Travel: No Contact w/Someone Who Travel: No Recent Hopitalizations: No Immunizations Up To Date Tetanus Booster (TDap): Less than 5yrs PED Vaccines UTD: Yes Date of Influenza Vaccine: Jul 29, 2017 Seasonal Allergies Seasonal Allergies: No Past Medical History Surgeries: Yes (Rt.hand surgery) Section, Orthopedic Respiratory: No Cardiac: Yes Hypertension Neurological: No Reproductive Disorders: No Female Reproductive Disorders: Denies Sexually Transmitted Disease: No HIV/AIDS: No Genitourinary: No Gastrointestinal: No Musculoskeletal: Yes Arthritis, Scoliosis Endocrine: No HEENT: No Loss of Vision: Denies Hearing Impairment: Denies Cancer: No Psychosocial: No Anxiety, Depression Integumentary: No Blood Disorders: No Adverse Reaction/Blood Tranf: No (N/A) Family Medical History Diabetes mellitus (mother's side of family) FH: cancer (grandfather- heart CA) Physical Exam Vital Signs Vital Signs - First Documented 07/25/18 19:12 Temp 98.1 Pulse 65 Resp 18 B/P (MAP) 118/60 (79) Pulse Ox 97 O2 Delivery Room Air Capillary Refill : Height, Weight, BMI Height: 5'2.00" Weight: 113lbs. 9.0oz. 51.029229iq; 20.8 BMI Method:Stated General Appearance: No Apparent Distress, WD/WN HEENT: PERRL/EOMI, TMs Normal Neck: Full Range of Motion, Normal Inspection Respiratory: No Accessory Muscle Use, No Respiratory Distress Gastrointestinal: Normal Bowel Sounds, Non Tender, Soft; No Distended, No Guarding, No Hepatomegaly, No Hernia Extremity: Normal Capillary Refill, Normal Inspection Neurologic/Psychiatric: Alert, Oriented x3 Skin: Normal Color, Warm/Dry Progress/Results/Core Measures Results/Orders Lab Results Laboratory Tests Test 07/25/18 20:41 Range/Units White Blood Count 5.6 4.3-11.0 10^3/uL Red Blood Count 3.87 L 4.35-5.85 10^6/uL Hemoglobin 10.1 L 11.5-16.0 G/DL Hematocrit 32 L 35-52 % Mean Corpuscular Volume 82 80-99 FL Mean Corpuscular Hemoglobin 26 25-34 PG Mean Corpuscular Hemoglobin Concent 32 32-36 G/DL Red Cell Distribution Width 18.1 H 10.0-14.5 % Platelet Count 253 130-400 10^3/uL Mean Platelet Volume 10.7 H 7.4-10.4 FL Neutrophils (%) (Auto) 40 L 42-75 % Lymphocytes (%) (Auto) 47 H 12-44 % Monocytes (%) (Auto) 9 0-12 % Eosinophils (%) (Auto) 3 0-10 % Basophils (%) (Auto) 1 0-10 % Neutrophils # (Auto) 2.3 1.8-7.8 X 10^3 Lymphocytes # (Auto) 2.6 1.0-4.0 X 10^3 Monocytes # (Auto) 0.5 0.0-1.0 X 10^3 Eosinophils # (Auto) 0.2 0.0-0.3 10^3/uL Basophils # (Auto) 0.0 0.0-0.1 10^3/uL Sodium Level 139 135-145 MMOL/L Potassium Level 3.8 3.6-5.0 MMOL/L Chloride Level 105 98-107 MMOL/L Carbon Dioxide Level 25 21-32 MMOL/L Anion Gap 9 5-14 MMOL/L Blood Urea Nitrogen 8 7-18 MG/DL Creatinine 0.75 0.60-1.30 MG/DL Estimat Glomerular Filtration Rate > 60 BUN/Creatinine Ratio 11 Glucose Level 88 70-105 MG/DL Calcium Level 9.3 8.5-10.1 MG/DL Corrected Calcium 9.2 8.5-10.1 MG/DL Total Bilirubin 0.3 0.1-1.0 MG/DL Aspartate Amino Transf (AST/SGOT) 19 5-34 U/L Alanine Aminotransferase (ALT/SGPT) 16 0-55 U/L Alkaline Phosphatase 49 40-136 U/L Total Protein 7.6 6.4-8.2 GM/DL Albumin 4.1 3.2-4.5 GM/DL Lipase 13 8-78 U/L Serum Test, Qualitative NEGATIVE NEGATIVE My Orders Orders - JARON AGUIRRE APRN Chest Pa/Lat (2 View) (07/25/18 19:17) Ketorolac Injection (Toradol Injection) (07/25/18 19:30) Orphenadrine Injection (Norflex Injectio (07/25/18 19:30) Cbc With Automated Diff (07/25/18 20:19) Comprehensive Metabolic Panel (07/25/18 20:19) Lipase (07/25/18 20:19) Hcg,Qualitative Serum (07/25/18 20:23) Antacid Suspension (Mylanta Suspension (07/25/18 20:30) Lidocaine 2% Viscous 15 Ml (Xylocaine Vi (07/25/18 20:30) Ct Abdomen/Pelvis Wo (07/25/18 21:12) Medications Given in ED Current Medications Medications Dose Ordered Sig/Mariajose Route Start Time Stop Time Status Last Admin Dose Admin Al Hydrox/Mg Hydrox/Simethicone 30 ml ONCE ONCE PO 07/25/18 20:30 07/25/18 20:31 DC 07/25/18 21:00 30 ML Ketorolac Tromethamine 60 mg ONCE ONCE IM 07/25/18 19:30 07/25/18 19:31 DC 07/25/18 20:01 60 MG Lidocaine HCl 5 ml ONCE ONCE PO 07/25/18 20:30 07/25/18 20:31 DC 07/25/18 21:00 5 ML Orphenadrine Citrate 60 mg ONCE ONCE IM 07/25/18 19:30 07/25/18 19:31 DC 07/25/18 20:01 60 MG Vital Signs/I&O 07/25/18 19:12 Temp 98.1 Pulse 65 Resp 18 B/P (MAP) 118/60 (79) Pulse Ox 97 O2 Delivery Room Air Departure Impression Primary Impression: right lower chest pain Disposition: HOME, SELF-CARE Condition: Stable Departure-Patient Inst. Decision time for Depature: 19:25 Referrals: [facility] (PCP) Primary Care Physician CHAUNCEY DAILEY MD (Family) Primary Care Physician Patient Instructions: Pleuritic Chest Pain (DC) Add. Discharge Instructions: All discharge instructions reviewed with patient and/or family. Voiced understanding. Images Torso/Trunk 1 - JARON AGUIRRE APRN Jul 25, 2018 19:25
[2018-07-25] MEDS ORDERED: KETOROLAC 60 MG/2 ML VIAL IM ONE (19:30)
[2018-07-25] MEDS ORDERED: ORPHENADRINE 60 MG/2 ML (NORFLEX) AMP IM ONE (19:30)
--- NOTE | 2018-07-25 19:46 | Diagnostic Imaging Report ---
INDICATION: Right rib pain for one day with no known injury. EXAMINATION: PA and lateral views of the chest. FINDINGS: The heart size and vascularity are normal. Lungs are clear. There is no effusion. There is no acute bony abnormality. No abnormality of the ribs is seen. IMPRESSION: No acute abnormality is seen. There is no change from 07/07/2017. Dictated by: Dictated on workstation # [id number]
[2018-07-25] MEDS ORDERED: ANTACID SUSP 30 ML UDC (MYLANTA) PO ONE (20:30)
[2018-07-25] MEDS ORDERED: LIDOCAINE 2% VISCOUS 15 ML UDC PO ONE (20:30)
[2018-07-25 20:47] LABS: BASOPHILS % (AUTO) 1 % (0-10); EOSINOPHILS # (AUTO) 0.2 10^3/uL (0.0-0.3); EOSINOPHILS % (AUTO) 3 % (0-10); HEMATOCRIT 32 % (35-52); HEMOGLOBIN 10.1 G/DL (11.5-16.0); LYMPHOCYTES # (AUTO) 2.6 X 10^3 (1.0-4.0); LYMPHOCYTES % (AUTO) 47 % (12-44); MEAN CORPUSCULAR HEMOGLOBIN 26 PG (25-34); MEAN CORPUSCULAR HGB CONC 32 G/DL (32-36); MEAN CORPUSCULAR VOLUME 82 FL (80-99); MEAN PLATELET VOLUME 10.7 FL (7.4-10.4); MONOCYTES # (AUTO) 0.5 X 10^3 (0.0-1.0); MONOCYTES % (AUTO) 9 % (0-12); NEUTROPHILS # (AUTO) 2.3 X 10^3 (1.8-7.8); NEUTROPHILS % (AUTO) 40 % (42-75); PLATELET COUNT 253 10^3/uL (130-400); RED BLOOD COUNT 3.87 10^6/uL (4.35-5.85); RED CELL DISTRIBUTION WIDTH 18.1 % (10.0-14.5); WHITE BLOOD COUNT 5.6 10^3/uL (4.3-11.0)
[2018-07-25 21:07] LABS: ALANINE AMINOTRANSFERASE 16 U/L (0-55); ALBUMIN 4.1 GM/DL (3.2-4.5); ALKALINE PHOSPHATASE 49 U/L (40-136); BILIRUBIN,TOTAL 0.3 MG/DL (0.1-1.0); BUN/CREATININE RATIO 11; CALCIUM 9.3 MG/DL (8.5-10.1); CARBON DIOXIDE 25 MMOL/L (21-32); CHLORIDE 105 MMOL/L (98-107); CREATININE SERUM 0.75 MG/DL (0.60-1.30); GFR ESTIMATED > 60; GLUCOSE 88 MG/DL (70-105); LIPASE 13 U/L (8-78); POTASSIUM 3.8 MMOL/L (3.6-5.0); SODIUM 139 MMOL/L (135-145); TOTAL PROTEIN 7.6 GM/DL (6.4-8.2)
[2018-07-25] MEDS ORDERED: HYDROcodone/APAP 5 MG/325 MG (LORTAB) TAB PO ONE (21:30)
--- NOTE | 2018-07-25 21:50 | Diagnostic Imaging Report ---
PROCEDURE: CT abdomen and pelvis without contrast. TECHNIQUE: Multiple contiguous axial images were obtained through the abdomen and pelvis without the use of intravenous contrast. INDICATION: Right upper quadrant pain for one day. FINDINGS: The liver, gallbladder and bile ducts are normal. The spleen, pancreas and adrenals are normal. The kidneys, ureters and bladder are normal. There is no pelvic mass. No acute bowel abnormality is seen. There is no free intraperitoneal air or fluid. There is no bony abnormality. IMPRESSION: No acute abnormality is seen. There is no change from 03/29/2016. Dictated by: Dictated on workstation # [id number]
[2018-07-25 22:20] VITALS: BP 120/65
== END 2018-07-25 22:20 | disposition home or self-care (01) ==
LOC: EDUNIT# 18:45 → ER 18:46
DX: R07.81 Pleurodynia (principal); I10 Essential (primary) hypertension; F41.9 Anxiety disorder, unspecified; F32.9 Major depressive disorder, single episode, unspecified; Z98.890 Other specified postprocedural states
CPT/HCPCS: 36415; 71046; 74176; 80053; 83690; 84703; 85025

== ENCOUNTER 2019-05-19 23:23 | Outpatient (CLI) | payer MEDICAID ==
[~2019-05-19] VITALS: Ht 157.5 cm; Wt 61.9 kg
--- NOTE | 2019-05-19 23:32 | NUR ---
JUSTIN BENSON presented to unit viaambulation from ED, accompanied by mother , with c/o RT & LEFT SIDE SHOOTING PAIN. JUSTIN BENSON weighed, gowned, voided, and to bed. EFHM and TOCO applied, VS taken. JUSTIN BENSON oriented to bed controls, call light, TV, heat, and A/C controls.
[2019-05-19 23:43] VITALS: BP 122/78
[2019-05-19] MEDS ORDERED: SERT50TA2 PO (23:57)
[2019-05-19] MEDS ORDERED: PREN-53 PO (23:57)
[2019-05-20 00:02] LABS: BILIRUBIN,URINE NEGATIVE (NEGATIVE); CLARITY,URINE CLEAR; COLOR,URINE YELLOW; GLUCOSE, URINE (UA) NEGATIVE (NEGATIVE); KETONES,URINE NEGATIVE (NEGATIVE); LEUKOCYTE ESTERASE ,URINE NEGATIVE (NEGATIVE); NITRITE,URINE NEGATIVE (NEGATIVE); PH,URINE 6 (5-9); PROTEIN,URINE 2+ (NEGATIVE); UROBILINOGEN,URINE NORMAL (NORMAL)
[2019-05-20 00:13] LABS: BACTERIA,URINE FEW /HPF
[2019-05-20 00:35] VITALS: BP 120/59
--- NOTE | 2019-05-20 00:38 | NUR ---
Dr. Deluca notified of pt. arrival, complaints, and UA. Orders received for CBC, CMP, urine protein creatine ratio, LDH, and uric acid.
[2019-05-20 01:15] LABS: BASOPHILS % (AUTO) 0 % (0-10); EOSINOPHILS # (AUTO) 0.2 10^3/uL (0.0-0.3); EOSINOPHILS % (AUTO) 2 % (0-10); HEMATOCRIT 28 % (35-52); HEMOGLOBIN 9.2 G/DL (11.5-16.0); LYMPHOCYTES # (AUTO) 2.3 X 10^3 (1.0-4.0); LYMPHOCYTES % (AUTO) 20 % (12-44); MEAN CORPUSCULAR HEMOGLOBIN 29 PG (25-34); MEAN CORPUSCULAR HGB CONC 33 G/DL (32-36); MEAN CORPUSCULAR VOLUME 88 FL (80-99); MEAN PLATELET VOLUME 11.3 FL (7.4-10.4); MONOCYTES # (AUTO) 0.9 X 10^3 (0.0-1.0); MONOCYTES % (AUTO) 8 % (0-12); NEUTROPHILS # (AUTO) 8.2 X 10^3 (1.8-7.8); NEUTROPHILS % (AUTO) 71 % (42-75); PLATELET COUNT 200 10^3/uL (130-400); RED CELL DISTRIBUTION WIDTH 14.9 % (10.0-14.5); WHITE BLOOD COUNT 11.6 10^3/uL (4.3-11.0)
[2019-05-20 01:34] LABS: ALANINE AMINOTRANSFERASE 8 U/L (0-55); ALBUMIN 3.2 GM/DL (3.2-4.5); ALKALINE PHOSPHATASE 64 U/L (40-136); BILIRUBIN,TOTAL 0.2 MG/DL (0.1-1.0); BUN/CREATININE RATIO 11; CALCIUM 9.6 MG/DL (8.5-10.1); CARBON DIOXIDE 20 MMOL/L (21-32); CHLORIDE 105 MMOL/L (98-107); CREATININE SERUM 0.65 MG/DL (0.60-1.30); GFR ESTIMATED > 60; GLUCOSE 95 MG/DL (70-105); POTASSIUM 3.2 MMOL/L (3.6-5.0); SODIUM 137 MMOL/L (135-145); TOTAL PROTEIN 6.2 GM/DL (6.4-8.2); URIC ACID 3.2 MG/DL (2.6-7.2)
[2019-05-20 01:53] VITALS: BP 119/62
--- NOTE | 2019-05-20 02:05 | NUR ---
Written discharge instructions reviewed with patient. Discharge instructions signed and copy given. patient left unit ambulating, accompanied by mother. Condition stable. No signs or symptoms of distress.
[2019-05-20 02:26] LABS: EOSINOPHILS % (MANUAL) 2 %; LYMPHOCYTES % (MANUAL) 14 %; MONOCYTES % (MANUAL) 5 %; NEUTROPHILS % (MANUAL) 79 %
--- NOTE | 2019-05-28 17:09 | Physician Query-Final Dx ---
LORRIE CARRILLO 05/28/19 1709: Clinic Account Progress/Dx Physician Query: Please give diagnosis Need diagnosis and weeks of gestation Date of Service May 19, 2019 at 23:23 RASHAWN CHEN MD 06/03/192023: Clinic Account Progress/Dx DIAGNOSIS: Diagnosis Left flank pain 21 weeks gestation Second trimester LORRIE CARRILLO May 28, 2019 17:09 RASHAWN CHEN MD Jun 03, 2019 20:24
== END 2019-05-20 02:05 | disposition home or self-care (01) ==
LOC: WSo 23:23 → LDRP 23:24 → WSo 05-20 02:05
PROVIDERS: ATTEND Family Medicine
DX: O99.89 Other specified diseases and conditions complicating pregnancy, childbirth and the puerperium (principal); R10.9 Unspecified abdominal pain; Z3A.21 21 weeks gestation of pregnancy
CPT/HCPCS: 36415; 80053; 81000; 82570; 83615; 84156; 84550; 85007; 85027; 99213

== ENCOUNTER 2019-05-21 16:45 | Outpatient (CLI) | payer MEDICAID ==
[~2019-05-21] VITALS: Ht 157.5 cm; Wt 62.4 kg
[~2019-05-21 16:45] MED LIST changes: +PREN-53 PO; +SERT50TA2 PO
--- NOTE | 2019-05-21 16:53 | NUR ---
JUSTIN BENSON presented to unit via from ED, accompanied by FAMIY, with c/o LOWER BACK AND ABD PAIN. JUSTIN BENSON weighed, gowned, voided, and to bed. EFHM and TOCO applied, VS taken. JUSTIN BENSON oriented to bed controls, call light, TV, heat, and A/C controls.
--- NOTE | 2019-05-21 17:05 | NUR ---
PT REPORTS LOWER ABDOMINAL CRAMPING AND BACK PAIN SINCE 1 PM. PT DENIES LEAKING OF FLUID, VAGINAL BLEEDING, DECREASED MOVEMENT OR OTHER C/O, PT DOES REPORTS SIGNIFICANT HX WITH OTHER PREGNANCIES INCLUDING, PLACENTA ABRUPTION X 2 AND ECLAMPSIA WITH HER LAST . DR CHEN CALLED UPDATED ABOUT PT, NEW ORDERS RECEIVED.
--- NOTE | 2019-05-21 17:33 | NUR ---
FHT'S DOPPLERED AT 157, NO CONTRACTIONS NOTED ON EFM.
[2019-05-21 17:40] VITALS: BP 109/65
--- NOTE | 2019-05-21 18:00 | NUR ---
NO CONTRACTIONS NOTED ON EFM, PT REPORTS FEELING MOVEMENT.
--- NOTE | 2019-05-21 18:05 | NUR ---
DISCHARGE INSTRUCTIONS EXPLAINED TO PT, SIGNED, NO QUESTIONS NOTED, VSS, PT DENIES QUESTIONS, LABOR PRECAUTIONS EXPLAINED, PT VERBALIZES UNDERSTANDING. AMBULATED OFF UNIT TO PRIVATE CAR WITH FAMILY, WILL FOLLOW UP SCHEDULED.
== END 2019-05-21 18:05 | disposition home or self-care (01) ==
LOC: WSo 16:45 → LDRP 16:45 → WSo 18:05
PROVIDERS: ATTEND Family Medicine
DX: O99.89 Other specified diseases and conditions complicating pregnancy, childbirth and the puerperium (principal); R10.32 Left lower quadrant pain; Z3A.21 21 weeks gestation of pregnancy
CPT/HCPCS: 99213

== ENCOUNTER 2019-07-13 21:49 | Outpatient (CLI) | payer MEDICAID ==
[~2019-07-13] VITALS: Ht 157 cm; Wt 68.0 kg
--- NOTE | 2019-07-13 21:50 | NUR ---
JUSTIN BENSON presented to unit via from ED, accompanied by FRIEND, with c/o DECREASED MOVEMENT 29 10/20. STATES SHE FELT MOVEMENT 30 MINS AGO BUT WAS NOT PRONOUNCED, . JUSTIN BENSON weighed, gowned, voided, and to bed. EFHM and TOCO applied, VS taken. JUSTIN BENSON oriented to bed controls, call light, TV, heat, and A/C controls.
--- NOTE | 2019-07-13 22:54 | NUR ---
notified of exam, complaint, u/a, vitals. Discharge order received.
--- NOTE | 2019-07-13 23:05 | NUR ---
Discharge instructions verbalized. labor precautions given. pt dc'd home. will follow up in office
--- NOTE | 2019-07-14 08:08 | Physician Query-Final Dx ---
Clinic Account Progress/Dx Physician Query: Please give diagnosis Please remember to include # weeks gestation Date of Service Jul 13, 2019 at 21:49 JUAN M RUSSELL Jul 14, 2019 08:07
== END 2019-07-13 23:05 ==
LOC: LDRP 21:49 → WSo 21:49
PROVIDERS: ATTEND Family Medicine
DX: O36.8130 Decreased fetal movements, third trimester, not applicable or unspecified (principal); Z3A.29 29 weeks gestation of pregnancy

== ENCOUNTER 2019-08-14 19:39 | Outpatient (CLI) | payer MEDICAID ==
[~2019-08-14] VITALS: Ht 157.5 cm; Wt 71.0 kg
--- NOTE | 2019-08-14 19:50 | NUR ---
JUSTIN BENSON presented to unit via from ED, accompanied by friend, with c/o DIZZINESS. JUSTIN BENSON weighed, gowned, voided, and to bed. EFHM and TOCO applied, VS taken. JUSTIN BENSON oriented to bed controls, call light, TV, heat, and A/C controls.
[2019-08-14 20:00] VITALS: BP 128/78
[2019-08-14 20:12] LABS: BILIRUBIN,URINE NEGATIVE (NEGATIVE); CLARITY,URINE CLEAR; COLOR,URINE YELLOW; GLUCOSE, URINE (UA) NEGATIVE (NEGATIVE); KETONES,URINE NEGATIVE (NEGATIVE); LEUKOCYTE ESTERASE ,URINE NEGATIVE (NEGATIVE); NITRITE,URINE NEGATIVE (NEGATIVE); PH,URINE 6.5 (5-9); PROTEIN,URINE 3+ (NEGATIVE)
[2019-08-14 20:23] LABS: BACTERIA,URINE NEGATIVE /HPF
[2019-08-14 20:24] LABS: AMORPHOUS SEDIMENT,UR MOD AMOR URATES /LPF
--- NOTE | 2019-08-14 20:31 | NUR ---
This Rn called Dr Mcdonnell to notify of patient arrival, 33/5wk gestation, hx of repeat c section, c/o dizziness and headache, and evaluation. Notified Dr Mcdonnell of patient seeing perinatalogist in [place] for increased fluid level according to patient and plans for delivery at 37weeks, also notified of contraction pattern of q3-6min, FHR variability, and patient states she is not feeling contraction pain, UA results. new orders received.
[2019-08-14] MEDS ORDERED: ACET/BUTAL/CAFF (FIORICET) TAB PO PRN (20:45)
[2019-08-14] MEDS ORDERED: ACET/BUTAL/CAFF (FIORICET) TAB PO ONE (20:50)
[2019-08-14] MEDS ORDERED: NS IV 1000 ML 1,000 ML ONE (21:41)
[2019-08-14] MEDS ORDERED: NS IV 1000 ML 1,000 ML IV SCH (21:45)
[2019-08-14] MEDS ORDERED: FERR159T2 PO (22:14)
[2019-08-14] MEDS ORDERED: TERBUTALINE INJ 1 MG/ML (BRETHINE) AMP ONE (22:52)
[2019-08-14 23:00] VITALS: BP 141/86
[2019-08-14] MEDS ORDERED: TERBUTALINE INJ 1 MG/ML (BRETHINE) AMP SC ONE (23:00)
[2019-08-14] MEDS ORDERED: BETAMETHASONE ACE/NA PHOS 6 MG/ML (CELESTONE SOLUSPAN) ONE (23:15)
--- NOTE | 2019-08-14 23:30 | NUR ---
Discharge instructions provided and reviewed with patient. Patient ambulating off of unit to private vehicle with friend.
[2019-08-15] MEDS ORDERED: BETAMETHASONE ACE/NA PHOS 6 MG/ML (CELESTONE SOLUSPAN) IM SCH (09:00)
[2019-08-15] MEDS ORDERED: ASPI-586 PO (14:03)
[2019-08-16] MEDS ORDERED: BUTA1TAB9 PO (12:33)
== END 2019-08-14 23:30 ==
LOC: LDRP 19:39 → WSo 19:39
PROVIDERS: ATTEND Family Medicine
DX: O99.89 Other specified diseases and conditions complicating pregnancy, childbirth and the puerperium (principal); R42 Dizziness and giddiness; Z3A.33 33 weeks gestation of pregnancy
CPT/HCPCS: 81000; 96360; 96372; 99213

== ENCOUNTER 2019-08-19 21:13 | Outpatient (CLI) | payer MEDICAID ==
[~2019-08-19] VITALS: Ht 157.5 cm; Wt 75.6 kg
[~2019-08-19 21:13] MED LIST changes: +ASPI-586 PO; +BUTA1TAB9 PO; +FERR159T2 PO
--- NOTE | 2019-08-19 21:20 | NUR ---
JUSTIN BENSON presented to unit via from ED, accompanied by mom, with c/o STOMACH TIGHTNESS AND PAIN. JUSTIN BENSON weighed, gowned, voided, and to bed. EFHM and TOCO applied, VS taken. JUSTIN BENSON oriented to bed controls, call light, TV, heat, and A/C controls. pt is 34/3. Denies bleeding or leaking of fluids. Confirms movmement.
[2019-08-19 21:54] LABS: BILIRUBIN,URINE NEGATIVE (NEGATIVE); GLUCOSE, URINE (UA) NEGATIVE (NEGATIVE); KETONES,URINE NEGATIVE (NEGATIVE); LEUKOCYTE ESTERASE ,URINE NEGATIVE (NEGATIVE); NITRITE,URINE NEGATIVE (NEGATIVE); PH,URINE 6.5 (5-9); PROTEIN,URINE 3+ (NEGATIVE)
[2019-08-19 22:02] VITALS: BP 120/77
[2019-08-19 22:04] LABS: CLARITY,URINE CLEAR; COLOR,URINE Y
[2019-08-19 22:06] LABS: BACTERIA,URINE FEW /HPF; WBC,URINE RARE /HPF
--- NOTE | 2019-08-19 22:11 | NUR ---
Dr. Beebe called and informed that pt presents with contractions every 3-11minutes that palpate mild. Informed of urine results. Informed of reactive strips and vitals WNL. Informed that pt was here over the weekend with frequent contractions and received two doses of terbutaline and 2 doses of betamethasone. orders for 1 liter of LR to be hung wide open.
--- NOTE | 2019-08-19 22:13 | NUR ---
Nurse at pt bedside to let her know what ordered. Pt. refuses more fluids stating that she has had 3 plus protein in her urine her entire and that she is not dehydrated.
--- NOTE | 2019-08-19 22:16 | NUR ---
Dr. Beebe called and informed that pt. refused IV fluids at this time. orders that pt be watched for 1 hr from last check and rechecked. If pt doesn't make change, pt can be discharged.
--- NOTE | 2019-08-19 22:20 | NUR ---
Nurse at pt. bedside. Pt states that she feels better and would like to go home now. Nurse agrees to recheck pt in 30 minutes.
== END 2019-08-19 23:00 | disposition home or self-care (01) ==
LOC: WSo 21:13 → LDRP 21:13 → WSo 23:00
PROVIDERS: ATTEND Family Medicine
DX: O26.893 Other specified pregnancy related conditions, third trimester (principal); Z3A.34 34 weeks gestation of pregnancy; R10.9 Unspecified abdominal pain
CPT/HCPCS: 81000; 99213

== ENCOUNTER 2019-08-30 17:20 | Inpatient (IN) | payer MEDICAID ==
[~2019-08-30] VITALS: Ht 157.5 cm; Wt 70.0 kg
[2019-08-30] VITALS (11 sets, daily range): BP systolic 115–136; BP diastolic 64–90
--- NOTE | 2019-08-30 17:30 | NUR ---
JUSTIN BENSON presented to unit via ambulation from ED, accompanied by family members , with c/o ELEV BP/HEADACHE/STOMACH PAIN. Pt. weighed, gowned, voided, and to bed. EFHM and TOCO applied, VS taken. Pt. oriented to bed controls, call light, TV, heat, and A/C controls.
--- NOTE | 2019-08-30 17:40 | NUR ---
pt reports c/o frontal RICARDO that extends to lower neck- started last noc. took Tylenol @ 1400 with no relief. denies visual changes. reports upper abd pain that starts in middle of abd and extends across abd. tenderness with palpation, abd soft upon exam. hx of Pre-e & placental abruption with previous two pregnancies @ 38 weeks. denies vaginal bleeding or leaking fluid. +FM. presented to hospital approx 3 weeks ago with similar c/o's. received Beta injection.
[2019-08-30 17:48] LABS: BILIRUBIN,URINE NEGATIVE (NEGATIVE); CLARITY,URINE CLEAR; COLOR,URINE YELLOW; GLUCOSE, URINE (UA) NEGATIVE (NEGATIVE); KETONES,URINE NEGATIVE (NEGATIVE); LEUKOCYTE ESTERASE ,URINE NEGATIVE (NEGATIVE); NITRITE,URINE NEGATIVE (NEGATIVE); PROTEIN,URINE 3+ (NEGATIVE)
[2019-08-30 17:52] LABS: BACTERIA,URINE TRACE /HPF; RBC,URINE 0-2 /HPF; WBC,URINE 0-2 /HPF
--- NOTE | 2019-08-30 17:55 | NUR ---
SVE closed, thick, posterior.
--- NOTE | 2019-08-30 18:00 | NUR ---
was called r/t pt's admit c/o's. reviewed hx. new orders received.
[2019-08-30 18:31] LABS: BASOPHILS % (AUTO) 0 % (0-10); EOSINOPHILS # (AUTO) 0.1 10^3/uL (0.0-0.3); EOSINOPHILS % (AUTO) 1 % (0-10); HEMATOCRIT 31 % (35-52); HEMOGLOBIN 9.8 G/DL (11.5-16.0); LYMPHOCYTES # (AUTO) 1.7 X 10^3 (1.0-4.0); LYMPHOCYTES % (AUTO) 19 % (12-44); MEAN CORPUSCULAR HEMOGLOBIN 28 PG (25-34); MEAN CORPUSCULAR HGB CONC 32 G/DL (32-36); MEAN CORPUSCULAR VOLUME 87 FL (80-99); MEAN PLATELET VOLUME 10.7 FL (7.4-10.4); MONOCYTES # (AUTO) 0.9 X 10^3 (0.0-1.0); MONOCYTES % (AUTO) 11 % (0-12); NEUTROPHILS # (AUTO) 6.1 X 10^3 (1.8-7.8); NEUTROPHILS % (AUTO) 69 % (42-75); PLATELET COUNT 233 10^3/uL (130-400); WHITE BLOOD COUNT 8.8 10^3/uL (4.3-11.0)
[2019-08-30 18:52] LABS: ALANINE AMINOTRANSFERASE 9 U/L (0-55); ALBUMIN 3.3 GM/DL (3.2-4.5); ALKALINE PHOSPHATASE 92 U/L (40-136); BILIRUBIN,TOTAL 0.3 MG/DL (0.1-1.0); BUN/CREATININE RATIO 9; CALCIUM 8.5 MG/DL (8.5-10.1); CARBON DIOXIDE 18 MMOL/L (21-32); CHLORIDE 106 MMOL/L (98-107); CREATININE SERUM 0.55 MG/DL (0.60-1.30); GFR ESTIMATED > 60; GLUCOSE 84 MG/DL (70-105); POTASSIUM 3.4 MMOL/L (3.6-5.0); SODIUM 136 MMOL/L (135-145); TOTAL PROTEIN 6.3 GM/DL (6.4-8.2)
--- NOTE | 2019-08-30 19:01 | NUR ---
was called r/t pt's labs and monitor tracing. new orders received.
[2019-08-30] MEDS: ACETAMINOPHEN 500 MG TAB (TYLENOL) PO PRN (19:32)
[2019-08-30] MEDS: LACTATED RINGERS 1,000 ML IV SCH (19:41)
[2019-08-31] VITALS (15 sets, daily range): BP systolic 116–141; BP diastolic 67–92
--- NOTE | 2019-08-31 02:05 | NUR ---
pt resting with eyes closed. denies any pain or discomfort at this time.
[2019-08-31] MEDS: LACTATED RINGERS 1,000 ML IV SCH ×2 (05:44→10:12)
--- NOTE | 2019-08-31 05:45 | NUR ---
pt continue to rest. mother at bedside. pt denies any pain or discomfort at this time.
[2019-08-31 06:11] LABS: BASOPHILS % (AUTO) 0 % (0-10); EOSINOPHILS # (AUTO) 0.1 10^3/uL (0.0-0.3); EOSINOPHILS % (AUTO) 1 % (0-10); HEMATOCRIT 30 % (35-52); HEMOGLOBIN 9.6 G/DL (11.5-16.0); LYMPHOCYTES # (AUTO) 2.1 X 10^3 (1.0-4.0); LYMPHOCYTES % (AUTO) 28 % (12-44); MEAN CORPUSCULAR HEMOGLOBIN 28 PG (25-34); MEAN CORPUSCULAR HGB CONC 32 G/DL (32-36); MEAN CORPUSCULAR VOLUME 88 FL (80-99); MEAN PLATELET VOLUME 10.9 FL (7.4-10.4); MONOCYTES # (AUTO) 0.7 X 10^3 (0.0-1.0); MONOCYTES % (AUTO) 9 % (0-12); NEUTROPHILS # (AUTO) 4.8 X 10^3 (1.8-7.8); NEUTROPHILS % (AUTO) 62 % (42-75); PLATELET COUNT 213 10^3/uL (130-400); RED CELL DISTRIBUTION WIDTH 17.1 % (10.0-14.5); WHITE BLOOD COUNT 7.7 10^3/uL (4.3-11.0)
[2019-08-31 06:40] LABS: ALANINE AMINOTRANSFERASE 10 U/L (0-55); ALKALINE PHOSPHATASE 85 U/L (40-136); BILIRUBIN,TOTAL 0.3 MG/DL (0.1-1.0); BUN/CREATININE RATIO 13; CARBON DIOXIDE 19 MMOL/L (21-32); CHLORIDE 107 MMOL/L (98-107); CREATININE SERUM 0.56 MG/DL (0.60-1.30); GFR ESTIMATED > 60; GLUCOSE 83 MG/DL (70-105); POTASSIUM 3.4 MMOL/L (3.6-5.0); SODIUM 135 MMOL/L (135-145); TOTAL PROTEIN 5.8 GM/DL (6.4-8.2)
--- NOTE | 2019-08-31 08:06 | NUR ---
DR. ROGEL TO PT'S BEDSIDE.
--- NOTE | 2019-08-31 08:32 | History & Physical-OB ---
OB - Chief Complaint & HPI Date/Time Date of Admission: Date of Admission: Date seen by a Provider: Aug 31, 2019 Time Seen by a Provider: 08:00 Chief Complaint/History OB-Reason for Admission/Chief: Labor Hx : 3 Hx Para: 2 Expected Date of Delivery: Sep 27, 2019 Gestational Age in Weeks: 36 Gestational Age in Days: 1 Indication for : desires repeat Admission Nurse Assessment Rev: Yes History of Labs O pos Antibody neg RI RPR NR HBsAg NR HIV NR GC neg GBS neg Allergies and Home Medications Allergies Coded Allergies: No Known Drug Allergies (Unverified , 04/21/18) Home Medications Ferrous Sulfate, Dried 159 Mg Tablet.er, 159 MG PO DAILY, (Reported) [id number]/Iron Fumarate/FA/Dss 1 Each Tablet, 1 EACH PO DAILY, (Reported) Patient Home Medication List Home Medication List Reviewed: Yes OB - History Hx of Present Care: Yes Ultrasounds: Normal mid trimester US Obstetrical Complications: Other (Transient gestational hypertension, with significant protienuria) Medical Complications: Other (Undiagnosed chronic nephropathy with protienuria) Obstetrical History Hx : 3 Hx Para: 2 Hx Termination: No Hx Complication: Yes (pre-E and abruption with 1st ) Delivery History Hx Section: Yes (x1 ) Hx Blood Disorders: No Adverse Rxn to Tranfusion: No (N/A) Patient Past Medical History see above, also reports anemia during Social History/Family History HIV/AIDS: No Recent Infectious Disease Expo: No Sexually Transmitted Disease: No Alcohol Use: Denies Use Recreational Drug Use: No 2nd Hand Smoke Exposure: No Immunizations Tetanus Booster (TDap): Less than 5yrs Date of Influenza Vaccine: Jul 13, 2019 OB - Admission Exam Physical Exam Vitals: Vital Signs 08/30/19 08/31/19 18:50 05:47 Temp 36.5 Pulse 86 Resp 18 B/P (MAP) 116/67 (83) Pulse Ox 98 O2 Delivery Room Air HEENT: NCAT Heart: Rhythm Normal Lungs: Clear Abdomen: Gravid Extremities: Normal Reflexes: Normal Cervical Dilatation: None Effacement: 50% Station: -2 Membranes: Intact Heart Rate: 130's Accelerations: Accelerations Present Decelerations: No Decelerations Short Term Variability: Present Proced Tech Variability: Average (6-25) Contractions on Admission: < 5 Minutes Apart Labs Laboratory Tests Test 08/30/19 17:40 08/30/19 18:24 08/31/19 05:57 Range/Units Urine Color YELLOW Urine Clarity CLEAR Urine pH 7.0 5-9 Urine Specific [place] 1.025 H 1.016-1.022 Urine Protein 229 H 6-12 MG/DL Urine Glucose (UA) NEGATIVE NEGATIVE Urine Ketones NEGATIVE NEGATIVE Urine Nitrite NEGATIVE NEGATIVE Urine Bilirubin NEGATIVE NEGATIVE Urine Urobilinogen 1.0 < = 1.0 MG/DL Urine Leukocyte Esterase NEGATIVE NEGATIVE Urine RBC (Auto) TRACE-I NEGATIVE Urine RBC 0-2 /HPF Urine WBC 0-2 /HPF Urine Squamous Epithelial Cells 2-5 /HPF Urine Crystals NONE /LPF Urine Bacteria TRACE /HPF Urine Casts NONE /LPF Urine Mucus SMALL H /LPF Urine Culture Indicated NO Urine Creatinine 128 H 30-125 MG/DL Urine Protein/Creatinine Ratio 1.79 White Blood Count 8.8 7.7 4.3-11.0 10^3/uL Red Blood Count 3.51 L 3.42 L 4.35-5.85 10^6/uL Hemoglobin 9.8 L 9.6 L 11.5-16.0 G/DL Hematocrit 31 L 30 L 35-52 % Mean Corpuscular Volume 87 88 80-99 FL Mean Corpuscular Hemoglobin 28 28 25-34 PG Mean Corpuscular Hemoglobin Concent 32 32 32-36 G/DL Red Cell Distribution Width 17.0 H 17.1 H 10.0-14.5 % Platelet Count 233 213 130-400 10^3/uL Mean Platelet Volume 10.7 H 10.9 H 7.4-10.4 FL Neutrophils (%) (Auto) 69 62 42-75 % Lymphocytes (%) (Auto) 19 28 12-44 % Monocytes (%) (Auto) 11 9 0-12 % Eosinophils (%) (Auto) 1 1 0-10 % Basophils (%) (Auto) 0 0 0-10 % Neutrophils # (Auto) 6.1 4.8 1.8-7.8 X 10^3 Lymphocytes # (Auto) 1.7 2.1 1.0-4.0 X 10^3 Monocytes # (Auto) 0.9 0.7 0.0-1.0 X 10^3 Eosinophils # (Auto) 0.1 0.1 0.0-0.3 10^3/uL Basophils # (Auto) 0.0 0.0 0.0-0.1 10^3/uL Sodium Level 136 135 135-145 MMOL/L Potassium Level 3.4 L 3.4 L 3.6-5.0 MMOL/L Chloride Level 106 107 98-107 MMOL/L Carbon Dioxide Level 18 L 19 L 21-32 MMOL/L Anion Gap 12 9 5-14 MMOL/L Blood Urea Nitrogen 5 L 7 7-18 MG/DL Creatinine 0.55 L 0.56 L 0.60-1.30 MG/DL Estimat Glomerular Filtration Rate > 60 > 60 BUN/Creatinine Ratio 9 13 Glucose Level 84 83 70-105 MG/DL Calcium Level 8.5 8.0 L 8.5-10.1 MG/DL Corrected Calcium 9.1 8.8 8.5-10.1 MG/DL Total Bilirubin 0.3 0.3 0.1-1.0 MG/DL Aspartate Amino Transf (AST/SGOT) 11 11 5-34 U/L Alanine Aminotransferase (ALT/SGPT) 9 10 0-55 U/L Alkaline Phosphatase 92 85 40-136 U/L Total Protein 6.3 L 5.8 L 6.4-8.2 GM/DL Albumin 3.3 3.0 L 3.2-4.5 GM/DL OB - Assessment/Plan/Diagnosis Assessment Assessment: labor Admission Dx 34 yo @ 36.1 weeks Previous x 2 Hx of placental abruption x 2 contractions Chronic Nephropathy with proteinuria Mild preE superimposed on chronic proteinuria GBS neg Admission Status: Inpatient Order (span 2 midnights) Reason for Inpatient Admission: labor Repeat Plan Plan: Section REYNALDO ROGEL DO Aug 31, 2019 08:32 POS
[2019-08-31] MEDS ORDERED: METOCLOPRAMIDE INJ 10 MG/2 ML (REGLAN) ONE (09:21)
[2019-08-31] MEDS ORDERED: FAMOTIDINE 20MG/2ML IV (PEPCID) ONE (09:22)
[2019-08-31] MEDS ORDERED: CITRIC ACID/SOB CIT (BICITRA) 30 ML UDC ONE (09:22)
[2019-08-31] MEDS ORDERED: ceFAZolin 2 GM IV Premixed 50 ML ONE (09:33)
[2019-08-31] MEDS ORDERED: OXYTOCIN/NORMAL SALINE 1,000 ML IV ONE (09:55)
[2019-08-31] MEDS ORDERED: METOCLOPRAMIDE INJ 10 MG/2 ML (REGLAN) IV ONE (10:00)
[2019-08-31] MEDS ORDERED: DEXAMETHASONE 10 MG/ML (DECADRON) 1 ML VIAL ONE (10:00)
[2019-08-31] MEDS ORDERED: CITRIC ACID/SOB CIT (BICITRA) 30 ML UDC PO ONE (10:00)
[2019-08-31] MEDS ORDERED: ceFAZolin 2 GM IV Premixed 50 ML IV ONE (10:00)
[2019-08-31] MEDS ORDERED: CATHETER FLUSH 10 ML SYR IV PRN (10:00)
[2019-08-31] MEDS ORDERED: FAMOTIDINE 20MG/2ML IV (PEPCID) IV ONE (10:00)
[2019-08-31] MEDS ORDERED: BUPIVACAINE 0.25% 30 ML (SENSORCAINE) VIAL ONE (10:00)
[2019-08-31] MEDS ORDERED: ONDANSETRON 4 MG/2 ML (SDV) Z0FRAN ONE (10:00)
--- NOTE | 2019-08-31 10:08 | Diagnostic Imaging Report ---
INDICATION: Estimate growth. FINDINGS: [place] viable IUP is in cephalic position. The amniotic fluid index of 22.3 is at the upper limits of normal. Largest vertical pocket 6.5 cm. Heart rate 135 bpm. Positioning is cephalic. The placenta is posterior. There was no previa or visualized abruption. The fetus receives a normal 8 out of 8 biophysical profile. IMPRESSION: Normal 8 out of 8 biophysical profile. SHARIF at the upper limits 22.3 otherwise normal exam with cephalic positioning, [place] viable IUP measuring 36 week 2 days. TECHNIQUE: Multiple real-time grayscale images were obtained over the gravid uterus. COMPARISON: None FINDINGS: Biometrical measurements are as follows: Biparietal 8.94 cm, age 36 weeks 2 days. Head circumference 32.24 cm, age 36 weeks 3 days. Abdominal circumference 32.30 cm, age 36 weeks 2 days. Femur length 6.98 cm, age 35 weeks 6 days. Sonographic estimate age: 36 weeks 2 days. Sonographic estimated date of delivery: 09/26/2019. Estimated Weight: 2857 gm (+/- 417 gm). LMP percentile: 51%. heart rate: 135 beats per minute. number: 1 of 1. Dictated by: Dictated on workstation # [id number]
[2019-08-31] MEDS ORDERED: OXYTOCIN/NORMAL SALINE 500 ML IV SCH (10:09)
[2019-08-31] MEDS ORDERED: TETANUS,DIPTH,PERTUSS P/F (BOOSTRIX) 0.5 ML VIAL IM SCH (10:15)
[2019-08-31] MEDS ORDERED: HYDROcodone/APAP 5 MG/325 MG (LORTAB) TAB PO PRN (10:15)
[2019-08-31] MEDS ORDERED: MEASLES,MUMPS,RUBELLA 1 EA INJ SC SCH (10:15)
[2019-08-31] MEDS ORDERED: fentaNYL INJECTION 100 MCG/2 ML AMP ONE (10:18)
[2019-08-31] MEDS ORDERED: HYDR-4226 PO (10:19)
[2019-08-31] MEDS ORDERED: IBUP-1773 PO (10:19)
[2019-08-31] MEDS ORDERED: DOCU-143 PO (10:19)
--- NOTE | 2019-08-31 10:21 | Discharge Inst-Women's Service ---
Discharge Inst-Women's Serv Depart Medication/Instructions New, Converted or Re-Newed RX: RX on Chart Final Diagnosis POD 2 RLTCS Problems Reviewed?: Yes Consults/Follow Up Additional Follow Up: Yes Orders/Referrals Dr. Pat in 7-10 days Activity Activity: Activity as Tolerated Driving Instructions: No Driving for 1 Week NO SMOKING: NO SMOKING Nothing Inside Vagina: No Douching, No [place], No Tampons Diet Discharge Diet: No Restrictions Symptoms to Report to : Bleeding Excessive, Pain Increased, Fever Over 101 Degrees F, Vaginal Bleeding Increase, Questions/Concerns For Any Problems or Questions: Contact Your Physician Skin/Wound Care Infection Signs and Symptoms: Increased Redness, Foul Odor of Wound, Increased Drainage, Skin Itchy or Has a Rash, Increased Swelling, Temperature Above 101 F Operative Area Clean and Dry: Keep Incision Clean/Dry Stitches/Estela/Dermabond: Dermabond, Care of Stitches Bathing Instructions: REYNALDO Lorenzo DO Aug 31, 2019 10:21 POS
[2019-08-31] MEDS ORDERED: LACTATED RINGERS 1,000 ML IV PRN (10:42)
[2019-08-31] MEDS ORDERED: BUPIVACAINE 0.5% 30 ML (SENSORCAINE) VIAL ONE (11:08)
[2019-08-31] MEDS: KETOROLAC 30 MG/ML VIAL IV SCH ×2 (11:56→18:53)
--- NOTE | 2019-08-31 12:30 | NUR ---
JUSTIN BENSON presented to ROOM 307 VIA BED IN STABLE CONDITION ACC BY Cuca PIPER, COMMUNICATIONS OPERATOR AFTER HAVING A REPEAT SECTION. REPORT RECEIVED.
--- NOTE | 2019-08-31 12:40 | NUR ---
PT . VS OBTAINED. IV TUBING CONVERTED OVER TO PUMP TUBING. PITOCIN INFUSING @ 125 ML/HR/PUMP.
--- NOTE | 2019-08-31 13:33 | NUR ---
VS OBTAINED. FFU/-1, LT RUBRA LOCHIA, NO CLOTS NOTED.
--- NOTE | 2019-08-31 14:36 | OPERATIVE REPORT ---
DATE OF SERVICE: 08/31/2019 PREOPERATIVE DIAGNOSES: 1. A 34-year-old G3, P2 at 36 weeks and 1 day gestation. 2. Previous section x2. 3. History of placental abruption x2. 4. labor. 5. Chronic nephropathy with proteinuria and superimposed mild preeclampsia. POSTOPERATIVE DIAGNOSES: 1. A 34-year-old G3, P2 at 36 weeks and 1 day gestation. 2. Previous section x2. 3. History of placental abruption x2. 4. labor. 5. Chronic nephropathy with proteinuria and superimposed mild preeclampsia. PROCEDURE: Repeat low transverse section. SURGEON: Nino Pat DO STAFF RADIOLOGIST: Aicha Tellez MS3 ANESTHESIA: Spinal. ESTIMATED BLOOD LOSS: 800 mL. URINE OUTPUT: 250 mL clear at the end of the procedure. FLUIDS: 2000 mL lactated Ringer's solution. FINDINGS: A live male infant weighing 5 pounds 8 ounces, Apgars of 8 and 9. Grossly normal appearing uterus, bilateral fallopian tubes and ovaries. Dense scarring of the vesicouterine peritoneum. SPECIMEN SENT: Placenta. INDICATIONS FOR PROCEDURE: A 34-year-old female patient that presented to the labor and delivery unit with contractions and lower abdominal pain especially over her incision. Due to her history, I discussed with the patient delivery at 36 weeks and the repercussions of possibly on the at 36 weeks versus the risk of waiting. I did have a suspicion of a possible uterine dehiscence as well as placental abruption, which occurred with her previous 2 pregnancies. The patient also had elevated blood pressures at home; however, once in the unit they were normal. She did continue to have spill a large amount of protein and her urine protein and creatinine ratio over 1 last evening when it was checked. After everything as far as risk was discussed with the patient, she was agreeable to proceed. Consent was obtained, and the patient was taken to the operating room where spinal anesthesia was administered and found to be adequate. She was placed in supine position with a leftward tilt, prepped and draped in normal sterile fashion. Anesthesia was tested and a timeout was performed. I then made a Pfannenstiel skin incision with the previous existing scar using knife and carried down to underlying fascia using Bovie cautery. Fascial incision was extended laterally using Bovie cautery. Superior aspect of fascial incision was then grasped with Rocío clamps, tented upward and dissected off the underlying rectus muscles. The inferior aspect of fascial incision was then grasped with Rocío clamps, tented up and dissected off the underlying rectus muscles. Rectus muscles were then dissected down the midline, which exposed us the peritoneum, which I entered bluntly and extended using blunt traction. There are dense filmy adhesions that encountered on doing so. Once these adhesions were taken down, I am able to place the Rachid ring retractor within the peritoneal incision, which offered excellent lateral sidewall retraction. I then identified the lower uterine segment, which was found to be thinned out and make a low transverse incision to the vesicouterine peritoneum and try to bluntly dissect this off; however, it is dense and scarred to the lower uterine segment. I proceeded with my myotomy until membranes were visualized, at which point I extended the uterine incision laterally and superiorly using bandage scissors. Amniotomy was performed and clear fluid was noted. The was found in vertex presentation. With gentle fundal pressure, the 's head was elevated up to the incision. I am unable to deliver it with just force on the uterine fundus and therefore I placed a Kiwi vacuum extractor on the flexion point of the baby's scalp and with gentle extension and using a 500 mmHg and suction I am able to extend the 's head through the incision. Anterior and posterior shoulders were delivered and the infant was then brought to the operative field where the cord was doubly clamped and cut and infant was handed off to waiting nurses and doctor and attendance. Cord blood was collected. 3-vessel cord with intact placenta was delivered spontaneously thereafter. IV Pitocin was initiated to facilitate uterine contraction. Uterine fundus was confirmed by manual massage. The uterus was exteriorized and cleared of all endometrial clots and debris. I then proceeded with closing the uterine incision using 0 Vicryl suture in running locked fashion. Second layer of imbricating 0 Monocryl was placed. Excellent hemostasis was noted after doing this. I then placed the uterus back in the pelvis and copiously irrigated the pelvis using normal saline. Once again, there was no active bleeding noted from any of my dissection planes. I placed Surgicel over the apex of the incision, which had some mild oozing just to ensure excellent postoperative hemostasis. I also placed Interceed over the top of this to prevent postoperative adhesion formation. I then removed the Rachid ring retractor and proceeded with closing the rectus muscles and peritoneum in one layer using 2-0 Vicryl suture in running fashion. The fascia was reapproximated using 0 Vicryl suture in running fashion. Subcutaneous tissue was reapproximated using 3-0 plain interrupted subcutaneous stitch and skin reapproximated using 4-0 Monocryl running subcuticular. Dermabond was applied to incision and sterile dressing with adhesive white tape. The patient tolerated the procedure well and was taken to recovery area in stable condition. Lap and sponge counts were correct at the end of the procedure. Instrument count was correct as well. Two grams of Ancef given preoperatively for infection prophylaxis. Job ID: [id number] DocumentID: [id number] Dictated Date: 08/31/2019 11:39:37 Camera Control Operator Date: 08/31/2019 14:34:52 Dictated By: DO TED HARRIS
--- NOTE | 2019-08-31 16:55 | NUR ---
THIS RN TO BEDSIDE. VS OBTAINED. PT ASSISTED UP TO THE BATHROOM. + VOID, + PERICARE. PT REMAINS UP IN ROOM, CHANGING OUT BRAS. PT UP TO THE CHAIR, IV RECONNECTED. FAMILY AT THE BEDSIDE. NO NEEDS OR QUESTIONS VOICED. CALL LIGHT WITHIN REACH.
[2019-08-31] MEDS: CATHETER FLUSH 10 ML SYR IV SCH (19:50)
[2019-08-31] MEDS: DOCUSATE SODIUM 100 MG (COLACE) CAP PO SCH (20:36)
[2019-08-31] MEDS: HYDROcodone/APAP 5 MG/325 MG (LORTAB) TAB PO PRN (22:30)
[2019-09-01 00:28] VITALS: BP 143/78
[2019-09-01] MEDS: CATHETER FLUSH 10 ML SYR IV SCH ×2 (00:28→05:49)
[2019-09-01] MEDS: KETOROLAC 30 MG/ML VIAL IV SCH ×2 (00:28→05:49)
[2019-09-01 04:00] VITALS: BP 126/76
[2019-09-01 05:46] LABS: BASOPHILS % (AUTO) 0 % (0-10); EOSINOPHILS # (AUTO) 0.1 10^3/uL (0.0-0.3); EOSINOPHILS % (AUTO) 0 % (0-10); HEMATOCRIT 26 % (35-52); LYMPHOCYTES # (AUTO) 2.5 X 10^3 (1.0-4.0); LYMPHOCYTES % (AUTO) 17 % (12-44); MEAN CORPUSCULAR HEMOGLOBIN 28 PG (25-34); MEAN CORPUSCULAR HGB CONC 31 G/DL (32-36); MEAN CORPUSCULAR VOLUME 89 FL (80-99); MEAN PLATELET VOLUME 11.1 FL (7.4-10.4); MONOCYTES # (AUTO) 1.5 X 10^3 (0.0-1.0); MONOCYTES % (AUTO) 10 % (0-12); NEUTROPHILS # (AUTO) 10.5 X 10^3 (1.8-7.8); NEUTROPHILS % (AUTO) 72 % (42-75); PLATELET COUNT 217 10^3/uL (130-400); RED CELL DISTRIBUTION WIDTH 16.3 % (10.0-14.5); WHITE BLOOD COUNT 14.5 10^3/uL (4.3-11.0)
--- NOTE | 2019-09-01 08:03 | Postpartum Progress Note ---
Note Note Day # 1 Subjective: Patient is without complaints. Ambulating, voiding. Tolerating a regular diet without nausea or vomiting. Normal lochia. Pain is well controlled with oral pain medications. Objective: Physical Exam: General - Alert and oriented, no apparent distress Abdomen - Soft, appropriately tender to palpation, non-distended, fundus firm at umbilicus Extremities - no edema, negative Denita's bilaterally Incision- c/d/i Assessment: POD 1 RLTCS Acute blood loss anemia, superimposed on anemia of . Plan: Routine care. Encourage breast feeding. Encourage ambulation. Ferrous sulfate supplementation. Plan for discharge tomorrow Vitals - Labs Vital Signs - I&O Vital Signs Date Time Temp Pulse Resp B/P (MAP) Pulse Ox O2 Delivery O2 Flow Rate FiO2 09/01/19 04:00 37.0 94 18 126/76 (93) 98 Room Air 09/01/19 00:28 37.2 100 18 143/78 (99) 98 Room Air 08/31/19 20:36 37.2 100 18 119/71 (87) 96 Room Air 08/31/19 16:26 37.0 106 18 135/71 (92) 95 Room Air 08/31/19 15:40 Room Air 08/31/19 13:33 37.2 86 18 141/71 (94) 96 Room Air 08/31/19 12:36 36.7 85 18 128/79 (95) 96 Room Air 08/31/19 12:30 Room Air 08/31/19 12:30 36.6 18 128/87 (101) 100 Room Air 08/31/19 12:20 Room Air 08/31/19 12:20 18 138/71 (93) 97 Room Air 08/31/19 12:17 Room Air 08/31/19 12:10 18 135/90 (105) 99 Room Air 08/31/19 12:05 Room Air 08/31/19 12:00 18 132/80 (97) 98 Room Air 08/31/19 11:50 Room Air 08/31/19 11:50 18 125/75 (92) 98 Room Air 08/31/19 11:40 18 133/92 (106) 99 Room Air 08/31/19 11:36 Room Air 08/31/19 11:36 36.9 20 126/84 (98) 97 Room Air 08/31/19 10:00 36.7 94 18 141/88 (105) Room Air I & O 09/01/19 07:00 Intake Total 2050 ml Output Total 3000 ml Balance -950 ml Labs Laboratory Tests 09/01/19 05:30: White Blood Count 14.5H, Red Blood Count 2.86L, Hemoglobin 8.0L, Hematocrit 26L, Mean Corpuscular Volume 89, Mean Corpuscular Hemoglobin 28, Mean Corpuscular Hemoglobin Concent 31L, Red Cell Distribution Width 16.3H, Platelet Count 217, Mean Platelet Volume 11.1H, Neutrophils (%) (Auto) 72, Lymphocytes (%) (Auto) 17, Monocytes (%) (Auto) 10, Eosinophils (%) (Auto) 0, Basophils (%) (Auto) 0, Neutrophils # (Auto) 10.5H, Lymphocytes # (Auto) 2.5, Monocytes # (Auto) 1.5H, Eosinophils # (Auto) 0.1, Basophils # (Auto) 0.0 REYNALDO ROGEL DO Sep 01, 2019 08:03 POS
[2019-09-01] MEDS: DOCUSATE SODIUM 100 MG (COLACE) CAP PO SCH ×2 (08:18→21:08)
[2019-09-01 08:20] VITALS: BP 120/77
[2019-09-01] MEDS ORDERED: FERR325T5 PO (08:20)
--- NOTE | 2019-09-01 08:25 | NUR ---
DR. ROGEL TO PT'S BEDSIDE, ROUNDING AND DISCUSSING POC. COLACE GIVEN PO; SEE EMAR FOR FURTHER. VS OBTAINED. INITIAL SHIFT ASSESSMENT COMPLETED; SEE INTERVENTION FOR FURTHER. SHOWER SET UP. PT DENIES ANY NEEDS OR QUESTIONS AT THIS TIME. CALL LIGHT WITHIN REACH.
--- NOTE | 2019-09-01 10:45 | NUR ---
PT AMBULATES OFF UNIT IN STABLE CONDITION ACC BY FAMILY.
--- NOTE | 2019-09-01 11:11 | NUR ---
PT BACK TO UNIT VIA W/C PER FAMILY.
[2019-09-01] MEDS: IBUPROFEN 600 MG (MOTRIN) TAB PO SCH ×3 (12:27→23:54)
[2019-09-01 12:28] VITALS: BP 114/74
[2019-09-01] MEDS: FERROUS SULF 325 MG (IRON) TAB PO SCH ×2 (12:28→18:45)
[2019-09-01] MEDS: HYDROcodone/APAP 5 MG/325 MG (LORTAB) TAB PO PRN ×2 (12:28→16:58)
--- NOTE | 2019-09-01 15:03 | Anesthesia-Regional Post-Op ---
Regional Patient Condition Mental Status: Alert, Oriented x3 Circulation: Same as Pre-Op Headache: Absent Sensation: Full Recovery Motor Block: Absent Post Op Complications Complications None Follow Up Care/Instructions Patient Instructions None needed. Anesthesia/Patient Condition Patient is doing well, no complaints, stable vital signs, no apparent adverse anesthesia problems. No complications reported per nursing. CATHERINE KYLE CRNA Sep 01, 2019 15:03 POS
[2019-09-01 16:56] VITALS: BP 130/82
[2019-09-01 23:54] VITALS: BP 110/72
[2019-09-02 05:52] VITALS: BP 126/78
[2019-09-02] MEDS: IBUPROFEN 600 MG (MOTRIN) TAB PO SCH ×2 (05:52→12:58)
[2019-09-02] MEDS: HYDROcodone/APAP 5 MG/325 MG (LORTAB) TAB PO PRN ×2 (06:12→14:01)
--- NOTE | 2019-09-02 08:00 | Postpartum Progress Note ---
Note Note Day # 2 Subjective: Patient is without complaints. Ambulating, voiding. Tolerating a regular diet without nausea or vomiting. Normal lochia. Pain is well controlled with oral pain medications. Objective: Physical Exam: General - Alert and oriented, no apparent distress Abdomen - Soft, appropriately tender to palpation, non-distended, fundus firm at umbilicus Extremities - no edema, negative Denita's bilaterally Incision: c/d/i Assessment: POD 2 RLTCS Acute blood loss anemia Plan: Routine care. Encourage breast feeding. Encourage ambulation. Ferrous sulfate supplementation. Plan for discharge today Vitals - Labs Vital Signs - I&O Vital Signs Date Time Temp Pulse Resp B/P (MAP) Pulse Ox O2 Delivery O2 Flow Rate FiO2 09/02/19 05:52 36.5 79 18 126/78 (94) 98 Room Air 09/01/19 23:54 36.5 85 18 110/72 (85) 97 Room Air 09/01/19 16:56 37.0 89 18 130/82 (98) 97 Room Air 09/01/19 12:28 36.5 92 18 114/74 (87) 95 Room Air 09/01/19 08:20 37.6 95 18 120/77 (91) 95 Room Air I & O 09/02/19 07:00 Intake Total 600 ml Balance 600 ml REYNALDO ROGEL DO Sep 02, 2019 08:00 POS
--- NOTE | 2019-09-02 09:00 | NUR ---
A.M. ASSESSMENT COMPLETED. WELL. FAMILY AT BEDSIDE. PLAN TO GO TO ROOMING IN TODAY.
[2019-09-02] MEDS: FERROUS SULF 325 MG (IRON) TAB PO SCH (09:29)
[2019-09-02] MEDS: ACETAMINOPHEN 500 MG TAB (TYLENOL) PO PRN (09:29)
[2019-09-02] MEDS: DOCUSATE SODIUM 100 MG (COLACE) CAP PO SCH (09:29)
[2019-09-02 12:00] VITALS: BP 134/73
--- NOTE | 2019-09-02 12:00 | NUR ---
CARING FOR IN ROOM. GOOD INTERACTION NOTED. WELL. FAMILY AT BEDSIDE.
[2019-09-02 15:00] VITALS: BP 134/73
--- NOTE | 2019-09-02 15:00 | NUR ---
DISCHARGE INSTRUCTIONS REVIEWED WITH COPY TO PT. STATES UNDERSTANDING OF ALL INSTRUCTIONS AND NEED TO F/U SCHEDULED AND NEEDED. DISMISSED FROM WS IN STABLE CONDITION. 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
== END 2019-09-02 15:00 | disposition home or self-care (01) | DRG 787 ==
LOC: WSo 17:20 → LDRP 17:20 → WSo 08-31 09:14 → LDRP 08-31 09:15
PROVIDERS: ADMIT Obstetrics & Gynecology; ATTEND Obstetrics & Gynecology
PROC: 10D00Z1 Extraction of Products of Conception, Low, Open Approach (ICD-10-PCS; principal; 2019-08-31 10:26)
DX: O60.14X0 Preterm labor third trimester with preterm delivery third trimester, not applicable or unspecified (principal); O14.04 Mild to moderate pre-eclampsia, complicating childbirth; O99.02 Anemia complicating childbirth; O90.81 Anemia of the puerperium; D62 Acute posthemorrhagic anemia; O26.833 Pregnancy related renal disease, third trimester; N03.9 Chronic nephritic syndrome with unspecified morphologic changes; O34.211 Maternal care for low transverse scar from previous cesarean delivery; Z37.0 Single live birth; Z3A.36 36 weeks gestation of pregnancy
CPT/HCPCS: 36415; 76805; 76819; 80053; 81000; 82570; 84156; 85025; 86850; 86900; 86901; 94664; 99212

== ENCOUNTER → 2020-05-04 | Outpatient (CLI) | payer MEDICAID ==
[~2020-05-04] MED LIST changes: +DOCU-143 PO; +FERR325T5 PO; +HYDR-4226 PO
--- NOTE | 2020-05-04 14:06 | Diagnostic Imaging Report ---
PROCEDURE: MRI left upper extremity without contrast. TECHNIQUE: Multiplanar, multisequence non contrast-enhanced MRI of the left upper extremity was accomplished. INDICATION: Injury to left elbow, laceration muscle fascia and tendon. COMPARISON: None FINDINGS: There is motion artifact on multiple sequences resulting in suboptimal evaluation. No acute fracture is seen in the left elbow. Alignment appears normal. No joint effusion is seen. The ulnar collateral ligament is intact. The radial collateral ligamentous complex appears intact. The origins of the common flexor and common extensor tendons appear intact. The distal triceps tendon is intact. The brachialis tendon is intact. There is a low-grade partial tear of the distal biceps tendon, with surrounding small hematoma measuring up to 1.6 x 0.6 cm in size. No muscular atrophy is seen. No focal edema is seen. The ulnar nerve is normal in the cubital tunnel. The median nerve is unremarkable. No soft tissue masses or fluid collections are seen. IMPRESSION: 1. Low-grade partial tear of the distal biceps tendon with small associated hematoma. Dictated by: Dictated on workstation # [id number]
== END ==
LOC: RAD 12:05
PROVIDERS: ATTEND Nurse Practitioner
DX: S46.22 Laceration of muscle, fascia and tendon of other parts of biceps (principal); X58.XXXS Exposure to other specified factors, sequela
CPT/HCPCS: 73221

== ENCOUNTER 2020-10-14 17:47 | Emergency (ER) | payer MEDICAID ==
[~2020-10-14] VITALS: Ht 158 cm; Wt 49.8 kg
[2020-10-14] MEDS ORDERED: LACTATED RINGERS 1,000 ML IV STA (18:13)
[2020-10-14] MEDS ORDERED: KETOROLAC 30 MG/ML VIAL IVP STA (18:13)
[2020-10-14] MEDS ORDERED: ONDANSETRON 4 MG/2 ML (SDV) Z0FRAN IVP ONE (18:15)
[2020-10-14] MEDS ORDERED: FAMOTIDINE 20MG/2ML IV (PEPCID) IV STA (18:32)
--- NOTE | 2020-10-14 18:39 | ED General ---
General Chief Complaint: Abdominal/GI Problems Stated Complaint: HEADACHE/NAUSEA/VOMITING Nursing Triage Note: headache, nausea, vomitting since last night. denies drinking. states started when smoking she would vomit, today she vomits with anything. Nursing Sepsis Screen: No Definite Risk Source of Information: Patient Exam Limitations: No Limitations History of Present Illness Date Seen by Provider: Oct 14, 2020 Time Seen by Provider: 18:15 Initial Comments Here with report of headache, nausea and vomiting since last night. Denies drinking alcohol and states she does not drink alcohol. She does smoke and denies drugs. No one around her is sick. She is a iagy-zh-uyce mother. She has been unable to take any p.o. fluids or food today. Reported migraine and states that she has a global headache. Has no history of migraines. She is denying contact with [facility]. Has been urinating well today and had bowel movement yesterday. Denies blood in any emesis, urine or stool. Timing/Duration: 24 Hours Severity: Moderate Associated Systoms: No Chest Pain, No Cough, No Fever/Chills; Headaches, Nausea/Vomiting; No Shortness of Air Allergies and Home Medications Allergies Coded Allergies: No Known Drug Allergies (Unverified , 04/21/18) Home Medications Docusate Sodium 100 Mg Capsule, 100 MG PO BID PRN for CONSTIPATION-1ST LINE Prescribed by: REYNALDO ROGEL on 08/31/19 1019 Ferrous Sulfate 325 Mg Tablet.dr, 325 MG PO BID Prescribed by: REYNALDO ROGEL on 09/01/19 0820 Ferrous Sulfate, Dried 159 Mg Tablet.er, 159 MG PO DAILY, (Reported) Hydrocodone/Acetaminophen 1 Each Tablet, 1-2 TAB PO Q6H Prescribed by: REYNALDO ROGEL on 08/31/19 1019 Ibuprofen 600 Mg Tablet, 600 MG PO Q6H Prescribed by: REYNALDO ROGEL on 08/31/19 1019 Qnh609/Iron Fumarate/FA/Dss 1 Each Tablet, 1 EACH PO DAILY, (Reported) Patient Home Medication List Home Medication List Reviewed: Yes Review of Systems Review of Systems Constitutional: see HPI; No chills, No fever EENTM: No nose congestion, No throat pain Respiratory: No cough, No short of breath Cardiovascular: No chest pain, No edema Gastrointestinal: abdominal pain; No diarrhea; nausea, vomiting Genitourinary: no symptoms reported Musculoskeletal: no symptoms reported Skin: no symptoms reported Psychiatric/Neurological: Headache; Denies Weakness All Other Systems Reviewed Negative Unless Noted: Yes Past Caqhrti-Qqkwat-Ugxkgz Hx Past Med/Social Hx: Reviewed Nursing Past Med/Soc Hx Patient Social History Alcohol Use: Denies Use Number of Drinks Today: GG Alcohol Beverage of Choice: Whiskey Recreational Drug Use: No Smoking Status: Current Everyday Smoker Type Used: Cigarettes 2nd Hand Smoke Exposure: No Recent Foreign Travel: No Contact w/Someone Who Travel: No Recent Infectious Disease Expo: No Recent Hopitalizations: Yes (OVER NIGHT STAY ON OB.) Immunizations Up To Date Tetanus Booster (TDap): Less than 5yrs PED Vaccines UTD: Yes Date of Influenza Vaccine: Jul 13, 2020 Seasonal Allergies Seasonal Allergies: Yes Past Medical History Surgeries: Yes (Rt.hand surgery) Section, Orthopedic, Tubal Ligation Respiratory: No Cardiac: No Hypertension Neurological: Yes (HX: SEIZURE) Reproductive Disorders: No Female Reproductive Disorders: Denies Sexually Transmitted Disease: No HIV/AIDS: No Genitourinary: No Gastrointestinal: No Musculoskeletal: No Arthritis, Scoliosis Endocrine: No HEENT: No Loss of Vision: Denies Hearing Impairment: Denies Cancer: No Psychosocial: Yes Anxiety, Depression Integumentary: No Blood Disorders: No Adverse Reaction/Blood Tranf: No (N/A) Family Medical History Reviewed Nursing Family Hx Diabetes mellitus (mother's side of family) FH: cancer (grandfather- heart CA) Physical Exam Vital Signs Vital Signs - First Documented 10/14/20 17:55 Temp 36.3 Pulse 92 Resp 18 B/P (MAP) 141/92 (108) Pulse Ox 95 O2 Delivery Room Air Capillary Refill : Less Than 3 Seconds Height, Weight, BMI Height: 5'2.00" Weight: 137lbs. 8.0oz. [id number]; 19.00 BMI Method:Stated General Appearance: No Apparent Distress, WD/WN HEENT: PERRL/EOMI, Pharynx Normal Neck: Non Tender, Supple Respiratory: Lungs Clear, Normal Breath Sounds Cardiovascular: Regular Rate, Rhythm, No Murmur Gastrointestinal: Normal Bowel Sounds, Soft, Tenderness (Epigastric) Back: Normal Inspection, No CVA Tenderness, No Vertebral Tenderness Extremity: Normal Range of Motion, Non Tender Neurologic/Psychiatric: Alert, Oriented x3 Skin: Normal Color, Warm/Dry Progress/Results/Core Measures Suspected Sepsis Recent Fever Within 48 Hours: No Infection Criteria Present: None New/Unexplained Altered Menta: No Sepsis Screen: No Definite Risk SIRS Temperature: Pulse: 92 Respiratory Rate: 18 Laboratory Tests 10/14/20 18:00: White Blood Count 7.9 Blood Pressure 141 /92 Mean: 108 Laboratory Tests 10/14/20 18:00: Creatinine 0.72, Platelet Count 279, Total Bilirubin 0.6 Results/Orders Lab Results Laboratory Tests Test 10/14/20 18:00 10/14/20 18:05 10/14/20 20:15 Range/Units White Blood Count 7.9 4.3-11.0 10^3/uL Red Blood Count 4.57 3.80-5.11 10^6/uL Hemoglobin 14.1 11.5-16.0 g/dL Hematocrit 44 35-52 % Mean Corpuscular Volume 95 80-99 fL Mean Corpuscular Hemoglobin 31 25-34 pg Mean Corpuscular Hemoglobin Concent 32 32-36 g/dL Red Cell Distribution Width 14.0 10.0-14.5 % Platelet Count 279 130-400 10^3/uL Mean Platelet Volume 10.3 9.0-12.2 fL Immature Granulocyte % (Auto) 0 % Neutrophils (%) (Auto) 52 42-75 % Lymphocytes (%) (Auto) 35 12-44 % Monocytes (%) (Auto) 11 0-12 % Eosinophils (%) (Auto) 1 0-10 % Basophils (%) (Auto) 1 0-10 % Neutrophils # (Auto) 4.2 1.8-7.8 10^3/uL Lymphocytes # (Auto) 2.8 1.0-4.0 10^3/uL Monocytes # (Auto) 0.9 0.0-1.0 10^3/uL Eosinophils # (Auto) 0.1 0.0-0.3 10^3/uL Basophils # (Auto) 0.0 0.0-0.1 10^3/uL Immature Granulocyte # (Auto) 0.0 0.0-0.1 10^3/uL Sodium Level 137 135-145 MMOL/L Potassium Level 3.7 3.6-5.0 MMOL/L Chloride Level 103 98-107 MMOL/L Carbon Dioxide Level 23 21-32 MMOL/L Anion Gap 11 5-14 MMOL/L Blood Urea Nitrogen 10 7-18 MG/DL Creatinine 0.72 0.60-1.30 MG/DL Estimat Glomerular Filtration Rate > 60 BUN/Creatinine Ratio 14 Glucose Level 94 70-105 MG/DL Calcium Level 9.1 8.5-10.1 MG/DL Corrected Calcium 8.8 8.5-10.1 MG/DL Total Bilirubin 0.6 0.1-1.0 MG/DL Aspartate Amino Transf (AST/SGOT) 17 5-34 U/L Alanine Aminotransferase (ALT/SGPT) 19 0-55 U/L Alkaline Phosphatase 59 40-136 U/L C-Reactive Protein High Sensitivity 0.22 0.00-0.50 MG/DL Total Protein 7.4 6.4-8.2 GM/DL Albumin 4.4 3.2-4.5 GM/DL Coronavirus 2019 (DAISHA) Negative Negative Urine Color YELLOW Urine Clarity CLEAR Urine pH 5.5 5-9 Urine Specific Harrah >=1.030 1.016-1.022 Urine Protein 1+ H NEGATIVE Urine Glucose (UA) NEGATIVE NEGATIVE Urine Ketones TRACE H NEGATIVE Urine Nitrite NEGATIVE NEGATIVE Urine Bilirubin 1+ H NEGATIVE Urine Urobilinogen 0.2 < = 1.0 MG/DL Urine Leukocyte Esterase NEGATIVE NEGATIVE Urine RBC (Auto) NEGATIVE NEGATIVE Urine RBC NONE /HPF Urine WBC NONE /HPF Urine Squamous Epithelial Cells 10-25 H /HPF Urine Crystals NONE /LPF Urine Bacteria NEGATIVE /HPF Urine Casts NONE /LPF Urine Mucus LARGE H /LPF Urine Culture Indicated NO Micro Results Microbiology 10/14/20 Influenza Types A,B Antigen (ABILIO) - Final, Complete My Orders Orders - RANDOLPH CARUSO MD Covid 19 Inhouse Test (10/14/20 18:13) Ondansetron Injection (Zofran Injectio (10/14/20 18:15) Lactated Ringers (Lr 1000 Ml Iv Solution (10/14/20 18:13) Ed Iv/Invasive Line Start (10/14/20 18:13) Cbc With Automated Diff (10/14/20 18:13) Comprehensive Metabolic Panel (10/14/20 18:13) Hs C Reactive Protein (10/14/20 18:13) Ua Culture If Indicated (10/14/20 18:13) Ketorolac Injection (Toradol Injection) (10/14/20 18:13) Lidocaine 2% Viscous 15 Ml (Xylocaine Vi (10/14/20 18:45) Antacid Suspension (Mylanta Suspension (10/14/20 18:45) Famotidine Injection (Pepcid Injection) (10/14/20 18:32) Urine Bedside (10/14/20 18:39) Cefepime Injection (Maxipime Injection) (10/14/20 19:30) Influenza A And B Antigens (10/14/20 20:25) Fentanyl Injection (Sublimaze Injection (10/14/20 20:36) Medications Given in ED Current Medications Medications Dose Ordered Sig/Mariajose Route Start Time Stop Time Status Last Admin Dose Admin Al Hydrox/Mg Hydrox/Simethicone 30 ml ONCE ONCE PO 10/14/20 18:45 10/14/20 18:46 DC 10/14/20 18:25 30 ML Cefepime HCl 1000 mg/Sterile Water 10 ml @ 200 mls/hr ONCE ONCE IV 10/14/20 19:30 10/14/20 19:32 DC 10/14/20 20:16 200 MLS/HR Lidocaine HCl 15 ml ONCE ONCE PO 10/14/20 18:45 10/14/20 18:46 DC 10/14/20 18:25 15 ML Ondansetron HCl 4 mg ONCE ONCE IVP 10/14/20 18:15 10/14/20 18:18 DC 10/14/20 18:25 4 MG Vital Signs/I&O 10/14/20 17:55 Temp 36.3 Pulse 92 Resp 18 B/P (MAP) 141/92 (108) Pulse Ox 95 O2 Delivery Room Air Capillary Refill : Less Than 3 Seconds Blood Pressure Mean: 108 Progress Note : Progress Note Seen and evaluated. IV, labs, UA, LR 1 L bolus, Zofran 4 mg IV, Toradol 30 mg IV, Pepcid 20 mg IV and GI cocktail ordered. Monitor patient. 2114: Fentanyl 50 mcg IV given for pain for her headache. This did help. Decadron 10 mg IV and hydrocodone go pack given. Overall she is feeling better. Flu and influenza were negative. UA was negative. Labs do not show any significant findings. We talked about further evaluation but she states that she is feeling a little better and feels okay going home. She does deny any injury or any family history of intracranial issues. Discharged home with return precautions. Patient verbalized understanding of instructions and agreement with plan. Departure Impression Primary Impression: Headache Qualified Codes: R51 - Headache Additional Impression: Minor head injury without loss of consciousness Qualified Codes: S09.90XA - Unspecified injury of head, initial encounter Disposition: HOME, SELF-CARE Condition: Improved Departure-Patient Inst. Decision time for Depature: 21:19 Referrals: EMMIE PHIPPS MD (PCP/Family) Primary Care Physician Patient Instructions: Headache, Adult (DC) Add. Discharge Instructions: All discharge instructions reviewed with patient and/or family. Voiced understanding. Your Covid and influenza screens were negative. If you have further symptoms related to Covid including fevers, loss of taste or smell, persistent headache, body aches or upper respiratory symptoms, you need to be retested. Follow-up with your doctor in a few days for recheck. Return for worse pain, fever, vomiting, weakness, breathing problems or other concerns as needed. RANDOLPH CARUSO MD Oct 14, 2020 18:39
[2020-10-14 18:40] LABS: BASOPHILS % (AUTO) 1 % (0-10); EOSINOPHILS # (AUTO) 0.1 10^3/uL (0.0-0.3); EOSINOPHILS % (AUTO) 1 % (0-10); HEMATOCRIT 44 % (35-52); HEMOGLOBIN 14.1 g/dL (11.5-16.0); LYMPHOCYTES # (AUTO) 2.8 10^3/uL (1.0-4.0); LYMPHOCYTES % (AUTO) 35 % (12-44); MEAN CORPUSCULAR HEMOGLOBIN 31 pg (25-34); MEAN CORPUSCULAR HGB CONC 32 g/dL (32-36); MEAN CORPUSCULAR VOLUME 95 fL (80-99); MEAN PLATELET VOLUME 10.3 fL (9.0-12.2); MONOCYTES # (AUTO) 0.9 10^3/uL (0.0-1.0); MONOCYTES % (AUTO) 11 % (0-12); NEUTROPHILS # (AUTO) 4.2 10^3/uL (1.8-7.8); NEUTROPHILS % (AUTO) 52 % (42-75); PLATELET COUNT 279 10^3/uL (130-400); WHITE BLOOD COUNT 7.9 10^3/uL (4.3-11.0)
[2020-10-14 18:44] LABS: ALBUMIN 4.4 GM/DL (3.2-4.5); CHLORIDE 103 MMOL/L (98-107); POTASSIUM 3.7 MMOL/L (3.6-5.0); SODIUM 137 MMOL/L (135-145)
[2020-10-14 18:45] LABS: CALCIUM 9.1 MG/DL (8.5-10.1)
[2020-10-14] MEDS ORDERED: ANTACID SUSP 30 ML UDC (MYLANTA) PO ONE (18:45)
[2020-10-14] MEDS ORDERED: LIDOCAINE 2% VISCOUS 15 ML UDC PO ONE (18:45)
[2020-10-14 18:46] LABS: GLUCOSE 94 MG/DL (70-105); TOTAL PROTEIN 7.4 GM/DL (6.4-8.2)
[2020-10-14 18:47] LABS: CARBON DIOXIDE 23 MMOL/L (21-32)
[2020-10-14 18:48] LABS: BILIRUBIN,TOTAL 0.6 MG/DL (0.1-1.0)
[2020-10-14 18:50] LABS: ALKALINE PHOSPHATASE 59 U/L (40-136); CREATININE SERUM 0.72 MG/DL (0.60-1.30); GFR ESTIMATED > 60
[2020-10-14 18:51] LABS: BUN/CREATININE RATIO 14
[2020-10-14 18:53] LABS: ALANINE AMINOTRANSFERASE 19 U/L (0-55)
[2020-10-14] MEDS ORDERED: CEFEPIME INJECTION 1,000 MG in WATER (STERILE) FOR INJECTION 10 ML IV ONE (19:30)
[2020-10-14 20:25] LABS: BILIRUBIN,URINE 1+ (NEGATIVE); CLARITY,URINE CLEAR; COLOR,URINE YELLOW; GLUCOSE, URINE (UA) NEGATIVE (NEGATIVE); KETONES,URINE TRACE (NEGATIVE); LEUKOCYTE ESTERASE ,URINE NEGATIVE (NEGATIVE); NITRITE,URINE NEGATIVE (NEGATIVE); PH,URINE 5.5 (5-9); PROTEIN,URINE 1+ (NEGATIVE)
[2020-10-14 20:36] LABS: BACTERIA,URINE NEGATIVE /HPF
[2020-10-14] MEDS ORDERED: fentaNYL INJECTION 100 MCG/2 ML AMP IVP STA (20:36)
[2020-10-14] MEDS ORDERED: RX-HYDROCODONE/APAP 5/325 MG #4 TAB PK PO PRN (21:15)
[2020-10-14 21:30] VITALS: BP 109/66
== END 2020-10-14 21:30 | disposition home or self-care (01) ==
LOC: EDUNIT# 17:47 → ER 17:49
DX: S09.90XA Unspecified injury of head, initial encounter (principal); F17.210 Nicotine dependence, cigarettes, uncomplicated; Z20.828 Contact with and (suspected) exposure to other viral communicable diseases; Z83.3 Family history of diabetes mellitus; Z80.9 Family history of malignant neoplasm, unspecified; X58.XXXA Exposure to other specified factors, initial encounter
CPT/HCPCS: 80053; 81000; 84703; 85025; 86141; 87804; 99284; U0002; 36415; 87635

== ENCOUNTER → 2021-02-22 | Outpatient (CLI) | payer MEDICAID ==
[~2021-02-22] MED LIST changes: +BUTA-235 PO; -BUTA1TAB9 PO; -CIPR500T4 PO; +CIPR500T5 PO; +ESCI-2; -ESCI10TA55; -OXYC-471 PO; +OXYC1TAB11 PO
--- NOTE | 2021-02-22 16:26 | Diagnostic Imaging Report ---
EXAMINATION: MRI lumbar spine without contrast. TECHNIQUE: Multiplanar, multisequence MRI of the lumbar spine was performed without contrast. HISTORY: Back pain. COMPARISON: None available. FINDINGS: The alignment of the lumbar spine is normal. Vertebral bodies demonstrate normal marrow signal intensity on all sequences. There are no compression fractures. The conus medullaris terminates at the level of L1-L2. The distal spinal cord signal intensity is normal. Intervertebral disks have normal height and signal intensity. Limited views of the abdomen and pelvis show no soft tissue abnormality. The aorta is normal. L1-L2: There is a small disc bulge. Facets are normal. No neural foraminal or spinal canal stenosis. L2-L3: The disc is normal in configuration. Facet joints are normal. There is no neuroforaminal stenosis. There is no spinal canal stenosis. L3-L4: The disc is normal in configuration. Facet joints are normal. There is no neuroforaminal stenosis. There is no spinal canal stenosis. L4-L5: There is a small disc bulge. There is mild bilateral facet arthropathy. No neural foraminal or spinal canal stenosis. L5-S1: The disc is normal. There is mild facet arthropathy. No neural foraminal or spinal canal stenosis. IMPRESSION: 1. Small disc bulges at L1-L2 and L4-L5 with mild facet arthropathy. No neural foraminal or spinal canal stenosis. Dictated by: Dictated on workstation # [id number]
== END ==
LOC: RAD 15:13
PROVIDERS: ATTEND Physician Assistant
DX: M51.16 Intervertebral disc disorders with radiculopathy, lumbar region (principal); M47.816 Spondylosis without myelopathy or radiculopathy, lumbar region; R29.2 Abnormal reflex
CPT/HCPCS: 72148

== ENCOUNTER → 2021-03-17 | Outpatient (CLI) | payer MEDICAID ==
--- NOTE | 2021-03-17 10:58 | Diagnostic Imaging Report ---
PROCEDURE: MR imaging cervical spine without contrast. TECHNIQUE: Multiplanar, multisequence MR imaging of the cervical spine was performed without contrast. INDICATION: Hyperreflexia. COMPARISON: None. FINDINGS: Examination is limited by motion. Normal alignment. Vertebral body heights are preserved. Normal bone marrow signal. No abnormal signal in the cervical spinal cord. Small central disc protrusion at C5-C6 results in only mild spinal canal narrowing. No high-grade spinal canal or neuroforaminal narrowing in the cervical spine. The intervertebral discs are otherwise preserved. Visualized paravertebral soft tissues are grossly unremarkable. IMPRESSION: 1. Examination is limited by motion. 2. Small disc protrusion at C5-C6 results in only mild spinal canal stenosis. 3. No other substantial spondylotic change. No high-grade neural impingement in the cervical spine. 4. No abnormal signal in the cervical spinal cord. Dictated by: Dictated on workstation # [id number]
== END ==
LOC: RAD 09:30
PROVIDERS: ATTEND Physician Assistant
DX: M50.222 Other cervical disc displacement at C5-C6 level (principal); M48.02 Spinal stenosis, cervical region
CPT/HCPCS: 72141

== ENCOUNTER 2021-07-20 14:18 | Emergency (ER) | payer MEDICAID ==
[~2021-07-20] VITALS: Ht 157.5 cm; Wt 52.2 kg
[~2021-07-20 14:18] MED LIST changes: -SULF1TAB35 PO; +SULF1TAB38 PO
[2021-07-20 14:24] VITALS: BP 166/108
--- NOTE | 2021-07-20 14:37 | ED Back Pain ---
General Chief Complaint: Back Problems Stated Complaint: LOWER BACK PAIN Source of Information: Patient Exam Limitations: No Limitations History of Present Illness Date Seen by Provider: Jul 20, 2021 Time Seen by Provider: 14:35 Initial Comments To ER with severe mid lower back pain ongoing for about 2 years. She is had lumbar and cervical spine MRI, she is on Ultram and methocarbamol for pain control but it is not helping. She is scheduled for a lumbar epidural steroid injection at some point in the near future. No trauma no fever no chills no history of IV drug use no loss of bowel or bladder control. She presents today because her pain medications are not helping. Location: Lumbar Spine, Paraspinous Muscles Timing/Duration: Getting Worse Severity: Moderate Pain/Injury Location: Back Method of Injury: Unknown Associated Symptoms: denies symptoms Allergies and Home Medications Allergies Coded Allergies: No Known Drug Allergies (Unverified , 04/21/18) Patient Home Medication List Home Medication List Reviewed: Yes Docusate Sodium (Colace) 100 Mg Capsule, 100 MG PO BID PRN for CONSTIPATION-1ST LINE Prescribed by: REYNALDO ROGEL on 08/31/19 1019 Ferrous Sulfate (Ferrous Sulfate) 325 Mg Tablet.dr, 325 MG PO BID Prescribed by: REYNALDO ROGEL on 09/01/19 0820 Ferrous Sulfate, Dried (Iron) 159 Mg Tablet.er, 159 MG PO DAILY, (Reported) Entered as Reported by: SHARMILA DAUGHERTY on 08/14/19 2214 Hydrocodone/Acetaminophen (Hydrocodone/Acetaminophen 5 MG/325 MG TAB) 1 Each Tablet, 1-2 TAB PO Q6H Prescribed by: REYNALDO ROGEL on 08/31/19 1019 Ibuprofen (Ibuprofen) 600 Mg Tablet, 600 MG PO Q6H Prescribed by: REYNALDO ROGEL on 08/31/19 1019 Hga389/Iron Fumarate/FA/Dss ( 19 Tablet) 1 Each Tablet, 1 EACH PO DAILY, (Reported) Entered as Reported by: ALISON LAZARO on 05/19/19 2097 Review of Systems Constitutional: see HPI EENTM: see HPI Respiratory: no symptoms reported Cardiovascular: no symptoms reported Genitourinary: no symptoms reported Musculoskeletal: see HPI, back pain Skin: no symptoms reported Psychiatric/Neurological: No Symptoms Reported Past Ronddnn-Mfivdk-Wjejdc Hx Patient Social History Tobacco Use?: Yes Tobacco type used: Cigarettes Smoking Status: Current Everyday Smoker Use of E-Cig and/or Vaping dev: No Substance use?: Yes Substance type: Marijuana Additional substance use comme: OCCASIONAL THC USE Alcohol Use?: No Immunizations Up To Date Tetanus Booster (TDap): Less than 5yrs PED Vaccines UTD: Yes First/Initial COVID19 Vaccinat: 2020 Second COVID19 Vaccination Cj: 2020 COVID19 Vaccine Regional Facilities Manager: MODERNA Seasonal Allergies Seasonal Allergies: Yes Past Medical History Surgeries: Yes (Rt.hand surgery) Section, Orthopedic, Tubal Ligation Respiratory: No Cardiac: No Hypertension Neurological: Yes (HX: SEIZURE) Reproductive Disorders: No Female Reproductive Disorders: Denies Sexually Transmitted Disease: No HIV/AIDS: No Genitourinary: No Gastrointestinal: No Musculoskeletal: No Arthritis, Scoliosis Endocrine: No HEENT: No Loss of Vision: Denies Hearing Impairment: Denies Cancer: No Psychosocial: Yes Anxiety, Depression Integumentary: No Blood Disorders: No Adverse Reaction/Blood Tranf: No (N/A) Family Medical History Diabetes mellitus (mother's side of family) FH: cancer (grandfather- heart CA) Physical Exam Vital Signs Capillary Refill : Height, Weight, BMI Height: 5'2.00" Weight: 137lbs. 8.0oz. [id number]; 19.00 BMI Method:Stated General Appearance: No Apparent Distress, WD/WN Respiratory: No Accessory Muscle Use, No Respiratory Distress Gastrointestinal: Normal Bowel Sounds, Non Tender, Soft Back: Normal Inspection Extremity: Normal Capillary Refill, Normal Inspection Neurologic/Psychiatric: Alert, Oriented x3 Skin: Normal Color, Warm/Dry Progress/Results/Core Measures Results/Orders My Orders Orders - JARON AGUIRRE APRN Ketorolac Injection (Toradol Injection) (07/20/21 14:45) Orphenadrine Inj (Ed Only) (Norflex Inje (07/20/21 14:45) Hydrocodone/Apap 5/325 Tablet (Lortab 5 (07/20/21 14:45) Departure Impression Primary Impression: Chronic back pain Disposition: 01 HOME, SELF-CARE Condition: Stable Departure-Patient Inst. Decision time for Depature: 14:36 Referrals: EMMIE PHIPPS MD (PCP/Family) Primary Care Physician Patient Instructions: Low Back Pain (DC) Add. Discharge Instructions: 1. Call primary care or orthopedics to discuss additional pain control. Any controlled substances will need to come from them since this pain is chronic. All discharge instructions reviewed with patient and/or family. Voiced understanding. Work/School Note: Work Release Form Date Seen in the Emergency Department: Jul 20, 2021 Return to Work: Jul 22, 2021 JARON AGUIRRE APRN Jul 20, 2021 14:37
[2021-07-20] MEDS ORDERED: ORPHENADRINE 60 MG/2 ML (NORFLEX) AMP (ED ONLY) IM ONE (14:45)
[2021-07-20] MEDS ORDERED: KETOROLAC 60 MG/2 ML VIAL IM ONE (14:45)
[2021-07-20] MEDS ORDERED: HYDROcodone/APAP 5 MG/325 MG (LORTAB) TAB PO ONE (14:45)
== END 2021-07-20 14:46 | disposition home or self-care (01) ==
LOC: EDUNIT# 14:18 → ER 14:19
DX: G89.29 Other chronic pain (principal); M54.50 Low back pain, unspecified; I10 Essential (primary) hypertension; M41.9 Scoliosis, unspecified; F17.210 Nicotine dependence, cigarettes, uncomplicated; Z79.891 Long term (current) use of opiate analgesic; Z79.899 Other long term (current) drug therapy
CPT/HCPCS: 96372; 99284

== ENCOUNTER 2023-09-07 13:33 | Emergency (ER) | payer MEDICAID ==
[~2023-09-07] VITALS: Ht 157 cm; Wt 54.0 kg
[2023-09-07] MEDS ORDERED: NS IV 1000 ML 1,000 ML IV STA (13:47)
[2023-09-07 13:52] LABS: BASOPHILS % (AUTO) 0 % (0-10); EOSINOPHILS # (AUTO) 0.2 10^3/uL (0.0-0.3); EOSINOPHILS % (AUTO) 2 % (0-10); HEMATOCRIT 39 % (35-52); HEMOGLOBIN 12.1 g/dL (11.5-16.0); LYMPHOCYTES % (AUTO) 30 % (12-44); MEAN CORPUSCULAR HEMOGLOBIN 25 pg (25-34); MEAN CORPUSCULAR HGB CONC 31 g/dL (32-36); MEAN CORPUSCULAR VOLUME 80 fL (80-99); MONOCYTES # (AUTO) 0.7 10^3/uL (0.0-1.0); MONOCYTES % (AUTO) 7 % (0-12); NEUTROPHILS % (AUTO) 61 % (42-75); PLATELET COUNT 283 10^3/uL (130-400); WHITE BLOOD COUNT 9.9 10^3/uL (4.3-11.0)
--- NOTE | 2023-09-07 13:53 | ED Abdominal Pain ---
General Chief Complaint: Abdominal/GI Problems Stated Complaint: AB PAIN Nursing Triage Note: PT AMBULATORY TO ER. PT C/O ABD PAIN ONSET SATURDAY EVENING, INTERMITTENT PAIN. +NAUSEA, TOOK A ZOFRAN APPROX [phone] TODAY. Source of Information: Patient Exam Limitations: No Limitations History of Present Illness Date Seen by Provider: Sep 07, 2023 Time Seen by Provider: 13:50 Initial Comments Patient is a 38-year-old female who presents ED with epigastric abdominal pain. Abdominal pain started on . Pain is described as burning and sharp. Pain has been fairly constant today initially was intermittent. Seems to be worse after eating. Reports nausea without vomiting or diarrhea. Took Zofran this morning. She states she is experiencing some mid to upper back pain over the past 2 days. No pain with urination frequent urination, vaginal bleeding or vaginal discharge. Last menstrual cycle 1 week ago. No history of previous abdominal surgery. She did take naproxen at home without much improvement. Denies excessive alcohol use. History of similar type pain in the past but nothing to this severe. Patient does report some chills but denies fever, headache, sore throat, cough, chest pain, shortness of breath, visual changes, unilateral muscle weakness or sensory changes. She had a normal bowel movement today. Allergies and Home Medications Allergies Coded Allergies: No Known Drug Allergies (Unverified , 04/21/18) Patient Home Medication List Home Medication List Reviewed: Yes Docusate Sodium (Colace) 100 Mg Capsule, 100 MG PO BID PRN for CONSTIPATION-1ST LINE Prescribed by: REYNALDO ROGEL on 08/31/19 1019 Ferrous Sulfate (Ferrous Sulfate) 325 Mg Tablet.dr, 325 MG PO BID Prescribed by: REYNALDO ROGEL on 09/01/19 0820 Ferrous Sulfate, Dried (Iron) 159 Mg Tablet.er, 159 MG PO DAILY, (Reported) Entered as Reported by: SHARMILA DAUGHERTY on 08/14/19 2214 Hydrocodone/Acetaminophen (Hydrocodone/Acetaminophen 5 MG/325 MG TAB) 1 Each Tablet, 1-2 TAB PO Q6H Prescribed by: REYNALDO ROGEL on 08/31/19 1019 Ibuprofen (Ibuprofen) 600 Mg Tablet, 600 MG PO Q6H Prescribed by: REYNALDO ROGEL on 08/31/19 1019 Pantoprazole Sodium (Protonix) 40 Mg Tablet.dr, 40 MG PO DAILY Prescribed by: LAINA SANTA on 09/07/23 9019 Cvl575/Iron Fumarate/FA/Dss ( 19 Tablet) 1 Each Tablet, 1 EACH PO DAILY, (Reported) Entered as Reported by: ALISON LAZARO on 05/19/19 7657 Review of Systems Review of Systems Constitutional: chills; No diaphoresis, No fever; malaise, weakness EENTM: No Double Vision, No Eye Pain Respiratory: Denies Cough Cardiovascular: Denies Chest Pain Gastrointestinal: Abdominal Pain; Denies Diarrhea; Nausea; Denies Vomiting Genitourinary: Denies Burning, Denies Discharge, Denies Drainage, Denies Frequency, Denies Flank Pain, Denies Hematuria Musculoskeletal: back pain; No joint pain Skin: No change in color Psychiatric/Neurological: Denies No Symptoms Reported Endocrine: Denies Flushing, Denies Intolerance to Cold, Denies Intolerance to Heat All Other Systems Reviewed Negative Unless Noted: Yes Past Kehwmvr-Vyakly-Tmattb Hx Patient Social History Tobacco Use?: Yes Tobacco type used: Cigarettes Smoking Status: Current Everyday Smoker Substance use?: Yes Substance type: Marijuana Alcohol Use?: Yes Pt feels they are or have been: No Immunizations Up To Date Tetanus Booster (TDap): Less than 5yrs PED Vaccines UTD: Yes First/Initial COVID19 Vaccinat: UNK Second COVID19 Vaccination Cj: 2020 Seasonal Allergies Seasonal Allergies: Yes Past Medical History Surgeries: Yes (Rt.hand surgery) Section, Orthopedic, Tubal Ligation Respiratory: No Cardiac: No Hypertension Neurological: Yes (HX: SEIZURE) Last Menstrual Period: Aug 27, 2023 Reproductive Disorders: No Female Reproductive Disorders: Denies Sexually Transmitted Disease: No HIV/AIDS: No Genitourinary: No Gastrointestinal: No Musculoskeletal: No Arthritis, Scoliosis Endocrine: No HEENT: No Loss of Vision: Denies Hearing Impairment: Denies Cancer: No Psychosocial: Yes Anxiety, Depression Integumentary: No Blood Disorders: No Adverse Reaction/Blood Tranf: No (N/A) Family Medical History Diabetes mellitus (mother's side of family) FH: cancer (grandfather- heart CA) Physical Exam Vital Signs Vital Signs - First Documented 09/07/23 13:44 Temp 36.4 Pulse 79 Resp 16 B/P (MAP) 158/101 (120) Pulse Ox 98 O2 Delivery Room Air Capillary Refill : Height/Weight/BMI Height: 5'2.00" Weight: 137lbs. 8.0oz. 62.887672jg; 21.00 BMI Method:Stated General Appearance: WD/WN, no apparent distress HEENT: PERRL/EOMI, normal ENT inspection, TMs normal, pharynx normal Neck: non-tender, full range of motion, supple Respiratory: chest non-tender, lungs clear, normal breath sounds, no respiratory distress Cardiovascular: regular rate, rhythm, no edema, no gallop, no JVD Gastrointestinal: normal bowel sounds, soft, no organomegaly, tenderness (Epigastric tenderness. Normal bowel sound throughout. 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, no motor/sensory deficits, alert, normal mood/affect, oriented x 3 Skin: normal color, warm/dry Progress/Results/Core Measures Results/Orders Lab Results Laboratory Tests Test 09/07/23 13:38 09/07/23 13:45 Range/Units Urine Color YELLOW Urine Clarity CLEAR Urine pH 6.0 5-9 Urine Specific [place] 1.020 1.016-1.022 Urine Protein 1+ H NEGATIVE Urine Glucose (UA) NEGATIVE NEGATIVE Urine Ketones TRACE H NEGATIVE Urine Nitrite NEGATIVE NEGATIVE Urine Bilirubin 1+ H NEGATIVE Urine Urobilinogen 0.2 < = 1.0 MG/DL Urine Leukocyte Esterase NEGATIVE NEGATIVE Urine RBC (Auto) TRACE H NEGATIVE Urine RBC 0-2 /HPF Urine WBC 0-2 /HPF Urine Squamous Epithelial Cells 25-50 H /HPF Urine Crystals NONE /LPF Urine Bacteria LARGE H /HPF Urine Casts NONE /LPF Urine Mucus SMALL H /LPF Urine Culture Indicated NO Urine Test NEGATIVE NEGATIVE White Blood Count 9.9 4.3-11.0 10^3/uL Red Blood Count 4.89 3.80-5.11 10^6/uL Hemoglobin 12.1 11.5-16.0 g/dL Hematocrit 39 35-52 % Mean Corpuscular Volume 80 80-99 fL Mean Corpuscular Hemoglobin 25 25-34 pg Mean Corpuscular Hemoglobin Concent 31 L 32-36 g/dL Red Cell Distribution Width 17.4 H 10.0-14.5 % Platelet Count 283 130-400 10^3/uL Mean Platelet Volume 10.0 9.0-12.2 fL Immature Granulocyte % (Auto) 0 % Neutrophils (%) (Auto) 61 42-75 % Lymphocytes (%) (Auto) 30 12-44 % Monocytes (%) (Auto) 7 0-12 % Eosinophils (%) (Auto) 2 0-10 % Basophils (%) (Auto) 0 0-10 % Neutrophils # (Auto) 6.0 1.8-7.8 10^3/uL Lymphocytes # (Auto) 3.0 1.0-4.0 10^3/uL Monocytes # (Auto) 0.7 0.0-1.0 10^3/uL Eosinophils # (Auto) 0.2 0.0-0.3 10^3/uL Basophils # (Auto) 0.0 0.0-0.1 10^3/uL Immature Granulocyte # (Auto) 0.0 0.0-0.1 10^3/uL Sodium Level 136 135-145 MMOL/L Potassium Level 3.4 L 3.6-5.0 MMOL/L Chloride Level 102 98-107 MMOL/L Carbon Dioxide Level 24 21-32 MMOL/L Anion Gap 10 5-14 MMOL/L Blood Urea Nitrogen 7 7-18 MG/DL Creatinine 0.84 0.60-1.30 MG/DL Estimat Glomerular Filtration Rate 92 BUN/Creatinine Ratio 8 Glucose Level 110 H 70-105 MG/DL Calcium Level 9.1 8.5-10.1 MG/DL Corrected Calcium 8.7 8.5-10.1 MG/DL Total Bilirubin 0.5 0.1-1.0 MG/DL Aspartate Amino Transf (AST/SGOT) 18 5-34 U/L Alanine Aminotransferase (ALT/SGPT) 11 0-55 U/L Alkaline Phosphatase 51 40-136 U/L Total Protein 8.0 6.4-8.2 GM/DL Albumin 4.5 3.2-4.5 GM/DL Lipase 9 8-78 U/L My Orders Orders - MIRANDA MORSE Ua Culture If Indicated (09/07/23 13:35) Hcg,Qualitative Urine (09/07/23 13:35) Cbc And Automated Diff (09/07/23 13:47) Comprehensive Metabolic Panel (09/07/23 13:47) Lipase (09/07/23 13:47) Ondansetron Injection (Ondansetron Inj (09/07/23 14:00) Ns Iv 1000 Ml (Ns Iv 1000 Ml) (09/07/23 13:47) Pantoprazole Injection (Pantoprazole Inj (09/07/23 14:00) Ct Abdomen/Pelvis W (09/07/23 13:49) Iohexol Injection (Omnipaque 350 Mg/Ml 1 (09/07/23 14:15) Ns (Ivpb) 100 Ml (Sodium Chloride 0.9% 1 (09/07/23 14:15) Ketorolac Injection (Ketorolac Injection (09/07/23 15:15) Medications Given in ED Current Medications Medications Dose Ordered Sig/Mariajose Route Start Time Stop Time Status Last Admin Dose Admin Iohexol 100 ml ONCE ONCE IV 09/07/23 14:15 09/07/23 14:16 DC 09/07/23 14:25 62 ML Ketorolac Tromethamine 30 mg ONCE ONCE IM 09/07/23 15:15 09/07/23 15:16 DC 09/07/23 15:10 30 MG Ondansetron HCl 4 mg ONCE ONCE IVP 09/07/23 14:00 09/07/23 14:02 DC 09/07/23 13:54 4 MG Pantoprazole 40 mg ONCE ONCE IV 09/07/23 14:00 09/07/23 14:02 DC 09/07/23 13:54 40 MG Sodium Chloride 100 ml ONCE ONCE IV 09/07/23 14:15 09/07/23 14:16 DC 09/07/23 14:25 80 ML Vital Signs/I&O 09/07/23 09/07/23 09/07/23 09/07/23 13:44 14:03 14:51 15:23 Temp 36.4 Pulse 79 78 79 80 Resp 16 16 B/P (MAP) 158/101 (120) 137/93 (108) 126/76 (93) 135/79 Pulse Ox 98 99 98 98 O2 Delivery Room Air Room Air Room Air Room Air Blood Pressure Mean: 120 Departure Communication (PCP) Patient presents ED with upper abdominal pain. Upper abdominal pain started . Initially intermittent but becamse worse today. Seems to have more pain with eating. Bowel movement today. No history of previous abdominal surgery besides C-sections. Differential diagnosis gastritis, pancreatitis, cholelithiasis, cholecystitis, constipation, peptic ulcer. CBC, CMP, lipase was ordered as well as urinalysis. Denies chest pain or shortness of breath. Urinalysis without strong evidence of infection. Negative for . CBC, CMP, lipase was grossly unremarkable. Received IV Protonix. Did offer GI cocktail she refused. CT abdomen pelvis noted constipation. No evidence of a cholelithiasis, pericholecystic fluid suggesting cholecystitis. No inflammatory changes of the pancreas. Denies excessive alcohol use. Does take naproxen intermittently. She did receive Toradol for headache. At this time recommend MiraLAX daily. Suggest drinking a full bottle of magnesium citrate over 24-hour period if no bowel movement. Recommend high-fiber diet. Drink plenty of fluids 64 ounces. If no bowel movement after 24-hour period of magnesium citrate recommend a Fleet enema. If this improves this pain suggest continue with laxatives as needed. If no improvement recommend taking Protonix as this may be a form of gastritis esspecially the pain with eating. GI outpatient follow-up for further evaluation. Other etiologies would be biliary dyskinesia which may need further outpatient studies such as HIDA scan. If any worsening pain to return back to ED. Follow-up your PCP in 2 to 3 days for reevaluation. Avoid eating late at night. Elevate your head at night. General surgery outpatient follow-up Impression Primary Impression: Abdominal pain Disposition: 01 HOME, SELF-CARE Condition: Stable Departure-Patient Inst. Decision time for Depature: 14:59 Referrals: AKI ZHENG BETHANY N MD (PCP/Family) Primary Care Physician Patient Instructions: Constipation, Adult (DC) Add. Discharge Instructions: Take Protonix daily. Recommend taking MiraLAX 1 packet daily with water. Dulcolax daily May consider magnesium citrate full bottle over 24-hour.. Follow -up with general surgery outpatient only if pain progress. If any worsening symptoms return back to ED. All discharge instructions reviewed with patient and/or family. Voiced understanding. Scripts Pantoprazole Sodium (Protonix) 40 Mg Tablet. 40 MG PO DAILY, #20 TAB Prov: MIRANDA MORSE 09/07/23 Work/School Note: Work Release Form Date Seen in the Emergency Department: Sep 07, 2023 Return to Work: Sep 09, 2023 MIRANDA MORSE Sep 07, 2023 13:53
[2023-09-07 13:56] LABS: CLARITY,URINE CLEAR; COLOR,URINE YELLOW; GLUCOSE, URINE (UA) NEGATIVE (NEGATIVE)
[2023-09-07 13:57] LABS: BILIRUBIN,URINE 1+ (NEGATIVE); KETONES,URINE TRACE (NEGATIVE); LEUKOCYTE ESTERASE ,URINE NEGATIVE (NEGATIVE); NITRITE,URINE NEGATIVE (NEGATIVE)
[2023-09-07 13:59] LABS: BACTERIA,URINE LARGE /HPF; PROTEIN,URINE 1+ (NEGATIVE); RBC,URINE 0-2 /HPF; SQUAMOUS EPITHELIAL CELL,UR 25-50 /HPF; WBC,URINE 0-2 /HPF
[2023-09-07] MEDS ORDERED: PANTOPRAZOLE INJECTION 40 MG VIAL IV ONE (14:00)
[2023-09-07] MEDS ORDERED: ONDANSETRON INJECTION 4 MG/2 ML (SDV) IVP ONE (14:00)
[2023-09-07 14:03] LABS: ALBUMIN 4.5 GM/DL (3.2-4.5); POTASSIUM 3.4 MMOL/L (3.6-5.0)
[2023-09-07 14:04] LABS: CALCIUM 9.1 MG/DL (8.5-10.1)
[2023-09-07 14:07] LABS: BILIRUBIN,TOTAL 0.5 MG/DL (0.1-1.0)
[2023-09-07 14:09] LABS: CREATININE SERUM 0.84 MG/DL (0.60-1.30)
[2023-09-07] MEDS ORDERED: IOHEXOL 350 MG/ML 100 ML (OMNIPAQUE 350) VIAL IV ONE (14:15)
[2023-09-07] MEDS ORDERED: NS 100 ML (IVPB) BAG IV ONE (14:15)
--- NOTE | 2023-09-07 14:33 | Diagnostic Imaging Report ---
PROCEDURE: CT abdomen and pelvis with contrast. TECHNIQUE: Multiple contiguous axial images were obtained through the abdomen and pelvis after administration of intravenous contrast. Auto Exposure Controls were utilized during the CT exam to meet ALARA standards for radiation dose reduction. All CT scans use one or more of the following dose optimizing techniques: automated exposure control, MA and/or KvP adjustment based on patient size and exam type or iterative reconstruction. INDICATION: Right upper quadrant epigastric pain. COMPARISON: 07/25/2018. DISCUSSION: The lung bases are well-aerated. Normal heart size. No pleural or pericardial fluid. The liver, gallbladder, pancreas, stomach, spleen and adrenal glands are unremarkable. No renal stone or hydronephrosis. Constipation is noted. No evidence for appendicitis. Uterus and urinary bladder are unremarkable. No ascites or adenopathy. The aorta is normal in caliber. No acute osseous abnormality identified. IMPRESSION: 1. Constipation. Dictated by: Dictated on workstation # [id number]
[2023-09-07] MEDS ORDERED: PANT40TA2 PO (14:59)
[2023-09-07] MEDS ORDERED: KETOROLAC INJ 30 MG/ML VIAL IM ONE (15:15)
[2023-09-07 15:23] VITALS: BP 135/79
== END 2023-09-07 15:24 | disposition home or self-care (01) ==
LOC: EDUNIT# 13:33 → ER 13:35
DX: R10.13 Epigastric pain (principal); R10.10 Upper abdominal pain, unspecified; K59.00 Constipation, unspecified; R11.0 Nausea; R51.9 Headache, unspecified; F17.210 Nicotine dependence, cigarettes, uncomplicated
CPT/HCPCS: 36415; 74177; 80053; 81000; 83690; 84703; 85025

== ENCOUNTER → 2023-09-13 | Outpatient (CLI) | payer MEDICAID ==
[~2023-09-13] MED LIST changes: +PANT40TA2 PO
--- NOTE | 2023-09-13 13:13 | Diagnostic Imaging Report ---
PROCEDURE: US Gallbladder. TECHNIQUE: Multiple real-time grayscale images were obtained over the right upper quadrant in various projections. INDICATION: Right upper quadrant pain. EXAMINATION: Ultrasound gallbladder 09/13/2023 FINDINGS: The liver is unremarkable. There is no common duct dilatation. Gallbladder unremarkable. Visualized pancreas, aorta and IVC normal in appearance. Right kidney 10.1 cm in length. There is no ascites. IMPRESSION: Unremarkable right upper quadrant sonogram. Dictated by: Dictated on workstation # [id number]
== END ==
LOC: RAD 10:52
PROVIDERS: ATTEND Surgery
DX: R10.11 Right upper quadrant pain (principal)
CPT/HCPCS: 76705